=== PATIENT | female | born 1945 | race Caucasian/White ===

== ENCOUNTER 2018-11-26 10:28 | Emergency (ER) | payer MEDICARE, SELFPAY ==
[2018-11-26 10:29] VITALS: BP 160/98; PULSE 85; RESP 20; TEMP 36.3; O2SAT 98; BMI 33.3
--- NOTE | 2018-11-26 10:45 | EKG12_ITS ---
Test Reason : SOB Blood Pressure : / mmHG Vent. Rate : 080 BPM Atrial Rate : 080 BPM P-R Int : 140 ms QRS Dur : 070 ms QT Int : 388 ms P-R-T Axes : 037 -10 023 degrees QTc Int : 447 ms Normal sinus rhythm Minimal voltage criteria for LVH, may be normal variant Inferior infarct , age undetermined Anterior infarct , age undetermined Abnormal ECG Confirmed by REFUGIO MENSAH ([id number]), editor newspaper ANGEL LUIS LAZAR ([id number]) on 11/30/2018 10:59:44 AM Referred By: NYASIA Confirmed By:REFUGIO MENSAH
--- NOTE | 2018-11-26 10:46 | ED.VISSUMM ---
- ER Visit Summary Date of Service: 11/26/18 Chief Complaint: [] Shortness of breath for years getting worse History of Present Illness: The patient is a 73 F [] Cates she has underlying history of hypertension that stable about 2 years ago she developed shortness of breath syndrome etiology which is unclear she indicates she saw aoc operations intelligence officer at [facility] she was found to have a heart murmur, she had a stress test and echo possibly a CT, she was told that the exact etiology of her shortness of breath was unclear but was not anything related to her heart. She indicates she has had persistent shortness of breath when she exerts herself or walks anyway she has to stop to catch her breath, she and intermittently has chest discomfort with the shortness of breath and exertion. She has no history of [place] PE or DVT her hypertension is generally stable she has had normal bowel bladder habits review of systems otherwise negative negative The main issue is his persistent chronic shortness of breath that seems to be getting worse The patient is currently resting in the bed she has no complaints she basically reports when she is still though she does not really exert herself she has no symptoms and her symptoms are primarily exertional Physical Examination: [] Vital signs within normal range General, no distress resting comfortably HEENT is generally unremarkable The neck is supple no adenopathy Cardiovascular, regular rate and rhythm she has a 3 out of 6 systolic murmur Lungs, clear bilateral Abdomen, soft nontender Extremities, no clubbing cyanosis or edema Neurologic, awake alert answering questions appropriately moving all 4 extremities Test Results: [] Emergency Department Course and Treatment: [] And all the above and her age screening labs were obtained Treatment Plan: [] I spoke with the patient's physician Dr. Barker she indicates her recent ejection fraction cardiac echo was about 75%, her valve area was 1.5 she had mild aortic stenosis Patient's EKG screening labs chest x-ray are all generally unremarkable see those reports, on reevaluation she is resting comfortably in the bed she remains asymptomatic I had a long conversation with her and her family explained to them we could admit her for further management evaluation of all the above the differential would certainly include the aortic stenosis contributing to her symptoms we discussed the potential life-threatening etiology and nature of cardiovascular disease including aortic stenosis and again we did discuss admission however the patient and the family did not wish to be admitted they preferred outpatient management the symptoms have been ongoing they understand the above, they will prefer to follow with her primary care physician who will see them and refer them to the appropriate specialist for further ongoing care the patient does agree to return for change in symptoms Disposition: [] Home stable declined admission Impression: [] Progressive dyspnea, aortic stenosis This note was generated with [employer] dictation software. It may contain incorrect words, spelling, and punctuation that were not noted in review of the chart prior to signing ED Disposition - Plan for ED Patient: Referrals: Dang Barker MD [Primary Care Provider] -
--- NOTE | 2018-11-26 10:47 | RAD_ITS ---
STUDY: X-RAY CHEST REASON FOR EXAM: Female, 73 years old. Chest pain TECHNIQUE: Single AP portable view of the chest. COMPARISON: None. FINDINGS: The lungs are clear and expanded. There is no demonstrated pleural abnormality. Normal size heart. Normal mediastinum and lon. Normal visualized pulmonary arteries. Normal visualized aortic arch and descending thoracic aorta. Normal visualized thoracic spine. Normal visualized ribs, clavicles, and shoulders. There is no demonstrated abnormality of the visualized soft tissue structures of the upper abdomen. RAD/Chest 1 View (Portable) IMPRESSION: Normal x-ray examination of the chest. Electronically Signed: Abebe Burk DO at 11:29 EDT Tel , Service support ,
[2018-11-26 10:56] VITALS: O2SAT 96
[2018-11-26 11:02] VITALS: BP 157/55; PULSE 78; RESP 18; O2SAT 95; O2SAT 96
[2018-11-26 11:07] LABS: Absolute Lymphocyte Count 1.54 X10^3/ul (0.83-4.51); Basophil# 0.04 X10^3/uL; Basophil% 0.6 % (0-1); Eosinophil# 0.15 X10^3/uL; Eosinophils% 2.3 % (0-5); Hematocrit 47.1 % (37-47); Hemoglobin 15.5 g/dl (12.0-15.0); Lymphocyte # 1.54 X10^3/ul (4.0); Lymphocyte % 23.6 % (19-41); Mean Corp Hgb Conc 32.9 g/gl (32-36); Mean Corpuscular Hgb 30.6 pg (27.0-32.0); Mean Corpuscular Volume 92.9 fL (81-99); Mean Platelet Vol. 10.6 fl (6.2-12.0); Monocyte# 0.79 X10^3/uL; Monocyte% 12.1 % (0-10); Neutrophil % 61.2 % (47-70); Platelet Count 275 K/mm3 (150-450); RBC Distribution Width CV 13.3 % (11.6-14.6); RBC Distribution Width SD 45.4 fl (35.1-43.9); Red Blood Count 5.07 M/mm3 (4.2-5.4); White Blood Count 6.5 K/mm3 (4.4-11.0)
[2018-11-26 11:14] LABS: POSITIVE COUNT NO; POSITIVE DIFFERENTIAL NO; POSITIVE MORPHOLOGY NO
[2018-11-26 11:23] LABS: BUN 17 mg/dL (7-18); Creatinine, Serum 0.88 mg/dL (0.55-1.02); Estimated Creatinine Clearance 50.47 ml/min; Glucose 115 mg/dL (74-106)
[2018-11-26 11:24] LABS: Anion Gap 4 (5-15); BUN/Creat Ratio 19.2 RATIO (10-20); Calcium,Total 8.7 mg/dL (8.5-10.1); Chloride 106 mmol/L (98-107); EST Glomerular Filtration Rate 66 mL/min (>60); Est Glom Filt Rate - Afr Amer 80 mL/min (>60); Potassium 3.8 mmol/L (3.5-5.1); Sodium Level 138 mmol/L (136-145)
[2018-11-26 11:31] VITALS: BP 157/55; PULSE 78; RESP 18; TEMP 36.3; O2SAT 95
[2018-11-26 12:03] LABS: BNP,B-Type NATRIURETIC PEPTIDE 30.2 pg/mL (0-100)
[2018-11-26 13:05] VITALS: BP 174/54; PULSE 68; RESP 18
--- NOTE | 2018-11-26 13:15 | ED.DEP ---
ED Disposition - Plan for ED Patient: Instructions: Discharge Instructions for Aortic Valve Stenosis, Heart Valve Problems: Aortic Stenosis Referrals: Dang Barker MD [Primary Care Provider] - Additional Instructions: Follow-up with all of your outpatient providers tomorrow call for appointment return for change in symptoms do not exert yourself
[2018-11-26 13:18] VITALS: BP 159/49; PULSE 68; RESP 18; TEMP 34.4
== END 2018-11-26 13:23 | disposition home or self-care (01) ==
LOC: ED 11:40
PROVIDERS: Emergency Provider Emergency Medicine; Family Provider Internal Medicine; PCP Internal Medicine
DX: R06.00 Dyspnea, unspecified (principal); I35.0 Nonrheumatic aortic (valve) stenosis; I10 Essential (primary) hypertension
CPT/HCPCS: 71045; 80048; 83880; 84484; 85025; 93005; 99284

== ENCOUNTER → 2019-03-13 07:45 | Outpatient (CLI) | payer MEDICARE, SELFPAY ==
[2019-02-19 14:47] VITALS: BMI 33.9
--- NOTE | 2019-03-13 08:45 | ECHOD_ITS ---
Reason For Study: DAS Procedure This was a 2D Doppler, Color Flow transthoracic echocardiogram. The study was technically difficult. Exam performed in department. Left Ventricle Normal LV size. Concentric left ventricular hypertrophy. The estimated ejection fraction is 70 %. Stage 2 diastolic dysfunction. No regional wall motion abnormalities noted. Right Ventricle Normal right ventricle. Normal systolic function. Atria The left atrium is mildly enlarged. Normal right atrium. No doppler evidence for ASD. Mitral Valve Mild mitral valve prolapse, posterior leaflet. There is no mitral valve stenosis. Trivial mitral valve insufficiency. Tricuspid Valve There is no tricuspid stenosis. Mild tricuspid valve insufficiency. Pulmonary artery systolic pressure is 40 mmHg. Aortic Valve Bicuspid aortic valve cannot be excluded. Mild aortic stenosis. No aortic valve insufficiency. Pulmonic Valve There is no pulmonic valvular stenosis. No pulmonic valve insufficiency. Great Vessels Normal aortic root. Pericardium/Pleural No pericardial effusion. MMode/2D Measurements & Calculations LVIDd: 4.0 cm IVSd: 1.1 cm LVOT diam: 2.0 cm LVIDs: 2.0 cm LVPWd: 1.0 cm LVOT area: 3.0 cm2 RVDd: 2.7 cm FS: 49.5 % LAV(MOD-bp): 44.3 ml Aortic Valve Planimetry: 1.7 cm2 LA A4 area: 14.8 cm2 LAV(MOD-bp) Indexed: 21.4 ml/m2 LAV(MOD-sp2): 45.9 ml LAV(MOD-sp4): 39.6 ml Time Measurements MV dec time: 0.23 sec Doppler Measurements & Calculations MV E max tom: 88.4 cm/sec Lat Peak E' Tom: 8.0 cm/sec Med Peak E' Tom: 4.2 cm/sec MV A max tom: 116.0 cm/sec E/E' lat: 11.0 E/E' med: 21.0 MV E/A: 0.76 Ao V2 max: 232.0 cm/sec LV V1 max: 128.7 cm/sec SV(LVOT): 89.3 ml Ao max P.5 mmHg LV V1 max P.6 mmHg Ao V2 mean: 183.5 cm/sec LV V1 mean P.6 mmHg Ao mean P.3 mmHg LV V1 mean: 104.1 cm/sec Ao V2 VTI: 52.1 cm LV V1 VTI: 29.6 cm DARI(I,D): 1.7 cm2 DARI(V,D): 1.7 cm2 PA V2 max: 120.9 cm/sec TR max tom: 282.6 cm/sec TR max P.0 mmHg Interpretation Summary The estimated ejection fraction is 70 %. Pulmonary artery systolic pressure is 40 mmHg. Mild tricuspid valve insufficiency. Concentric left ventricular hypertrophy. Stage 2 diastolic dysfunction. The left atrium is mildly enlarged. Mild mitral valve prolapse, posterior leaflet Trivial mitral valve insufficiency. Bicuspid aortic valve cannot be excluded Mild aortic stenosis. Ordering Physician: Chinedu Cooper Referring Physician: Dang Barker Performed By: Brigid Martin, DEISY, RVT
--- NOTE | 2019-03-13 10:48 | PFTCOMP_ITS ---
COMPLETE PULMONARY FUNCTION TEST INTERPRETATION Brief HPI: Patient is a 73 year old female, currently under the care of Dr. Cooper, who presents to [facility] for complete pulmonary function tests secondary to diagnosis of dyspnea. Respiratory therapist reports good effort and reproducible results. Interpretation: Forced expiration spirometry shows no large airways obstructive ventilatory defect with an FEV1 of 89% predicted. There is no significant bronchodilator response by strict ATS criteria. Spirograms are of good quality and plateau normally. The respiratory flow volume loop shows a normal pattern. Lung volumes by body plethysmography show a normal total lung capacity at 4.25 L, 85% predicted. All other lung volumes are within normal limits. Diffusion capacity by carbon monoxide is normal at 77% predicted. The airway resistance is normal. No previous pulmonary function tests were available for review. Impression: These pulmonary function tests are within normal limits.
== END ==
PROVIDERS: Family Provider Internal Medicine; PCP Internal Medicine; Referring Provider Specialist; Visit Provider Specialist
DX: R06.09 Other forms of dyspnea (principal)
CPT/HCPCS: 93306; 94060; 94726; 94729

== ENCOUNTER → 2021-02-11 12:39 | Outpatient (CLI) | payer MEDICARE, SELFPAY ==
[2021-01-28 15:00] VITALS: BMI 34.4
--- NOTE | 2021-02-11 12:41 | ECHOD_ITS ---
Reason For Study: MUMUR Procedure This was a 2D Doppler, Color Flow transthoracic echocardiogram. The study was technically difficult. Limited views were obtained. Exam performed in department. Left Ventricle Normal LV size. Moderate concentric left ventricular hypertrophy. Left ventricular systolic function is normal. The estimated ejection fraction is 70 %. Diastolic function is indeterminate. No regional wall motion abnormalities noted. Right Ventricle Normal RV size. Normal systolic function. Atria The left atrium is mildly enlarged. Normal right atrium. No doppler evidence for ASD. Mitral Valve There is no mitral annular calcification. Moderate diffuse mitral valve thickening. Mild mitral valve prolapse, posterior leaflet. Mild (1+) mitral valve insufficiency. Tricuspid Valve Normal tricuspid valve. Mild tricuspid valve insufficiency. Right ventricular systolic pressure estimated to be 34 mmHg. Aortic Valve Trisinus/trileaflet aortic valve. Mild diffuse aortic valve thickening. Mild diffuse aortic valve calcification. Mild aortic stenosis. Pulmonic Valve Normal pulmonic valve. Trivial pulmonic valve insufficiency. Great Vessels Normal sized aortic root. Calcified aortic root. Pericardium/Pleural No pericardial effusion. Medication 22 gauge I.V. with prn adaptor inserted into right arm. Diluted definity 2ml given slow IV push to enhance endocardial definition. MMode/2D Measurements & Calculations LVIDd: 3.5 cm IVSd: 1.3 cm LVOT diam: 2.0 cm LVIDs: 2.0 cm LVPWd: 1.3 cm RVDd: 3.6 cm FS: 42.0 % LVOT area: 3.1 cm2 Ao root diam: 2.9 cm LAV(MOD-bp): 46.2 ml LA A4 area: 17.3 cm2 LAV(MOD-bp) Indexed: 23.3 ml/m2 LAV(MOD-sp2): 42.2 ml LAV(MOD-sp4): 46.2 ml LA dimension(2D): 4.2 cm RA A4 area: 11.1 cm2 Time Measurements MV dec time: 0.31 sec Doppler Measurements & Calculations MV E max tom: 110.6 cm/sec Lat Peak E' Tom: 3.9 cm/sec Med Peak E' Tom: 3.5 cm/sec MV A max tom: 126.3 cm/sec E/E' lat: 28.1 E/E' med: 31.2 MV E/A: 0.88 MV V2 max: 132.9 cm/sec Ao V2 max: 193.7 cm/sec LV V1 max: 88.8 cm/sec MV max P.1 mmHg Ao max P.0 mmHg LV V1 max P.9 mmHg MV V2 mean: 74.4 cm/sec Ao V2 mean: 146.4 cm/sec LV V1 mean P.3 mmHg MV mean P.5 mmHg Ao mean P.2 mmHg LV V1 mean: 65.5 cm/sec MV V2 VTI: 35.7 cm Ao V2 VTI: 48.2 cm LV V1 VTI: 22.0 cm MVA(VTI): 1.9 cm2 DARI(I,D): 1.4 cm2 DARI(V,D): 1.4 cm2 SV(LVOT): 67.6 ml PA V2 max: 95.0 cm/sec TR max tom: 277.1 cm/sec TR max P.7 mmHg ECHO/Echo Complete W/ Contrast Interpretation Summary The study was technically difficult. Limited views were obtained. Left ventricular systolic function is normal. The estimated ejection fraction is 70 %. Moderate concentric left ventricular hypertrophy. The left atrium is mildly enlarged. Mild mitral valve prolapse, posterior leaflet Moderate diffuse mitral valve thickening. Mild (1+) mitral valve insufficiency. Mild tricuspid valve insufficiency. Mild aortic stenosis. Trivial pulmonic valve insufficiency. Calcified aortic root. Right ventricular systolic pressure estimated to be 34 mmHg. Diastolic function is indeterminate. Ordering Physician: Moses Quiñonez Referring Physician: ORQUIDEA RAPHAEL Performed By: Casie Rome, RDCS, RVT
== END ==
PROVIDERS: PCP Internal Medicine; Referring Provider Internal Medicine Cardiovascular Disease; Visit Provider Internal Medicine Cardiovascular Disease
DX: I35.0 Nonrheumatic aortic (valve) stenosis (principal)
CPT/HCPCS: 93306; Q9957; A4216; C8929; J3490

== ENCOUNTER 2022-10-07 15:29 | Observation (INO) | payer MEDICARE, SELFPAY ==
[2022-10-07 15:30] VITALS: BP 148/70; PULSE 65; RESP 16; TEMP 36.6; O2SAT 96
--- NOTE | 2022-10-07 16:38 | CT_ITS ---
EXAM: CT ABDOMEN AND PELVIS WITH INTRAVENOUS CONTRAST CLINICAL INDICATION: rectal pain, constipation TECHNIQUE: Helically acquired images were obtained of the abdomen and pelvis with intravenous contrast. This CT exam was performed using one or more of the following dose reduction techniques: automated exposure control, adjustment of the mA and/or kV according to patient size, and/or use of iterative reconstruction technique. This report was created using [employer] report generation technology. CONTRAST: 100 cc of Isovue-370 IV. RADIATION DOSE: CTDIvol = 30.12 mGy, DLP = 1328.44 mGy-cm. COMPARISON: None. FINDINGS: LOWER THORAX: Coronary artery calcifications. Lung bases are clear. No cardiomegaly. No significant pericardial effusion. ABDOMEN: LIVER: Unremarkable. Homogeneous. No focal mass. GALLBLADDER AND BILE DUCTS: Unremarkable. No calcified gallstones. No gallbladder distention or wall edema. No intra- or extrahepatic biliary ductal dilation. PANCREAS: Unremarkable. No focal cystic or solid mass. SPLEEN: Unremarkable. Normal size without focal cystic or solid mass. ADRENALS: Unremarkable. No nodules. KIDNEYS AND URETERS: Cyst measuring 5.8 cm left kidney small cyst right kidney. Normal renal size and position. No hydronephrosis. STOMACH AND BOWEL: Rectum is mildly distended up to 5.5 cm in diameter with fecal material. Moderate perirectal fat stranding. No focal inflammatory change. PELVIS: APPENDIX: Normal appendix. BLADDER: Unremarkable. REPRODUCTIVE: Hysterectomy. Cyst measuring 3.3 cm left adnexa. ABDOMEN and PELVIS: INTRAPERITONEAL SPACE: Unremarkable. No ascites or other fluid collection. No free air. BONES/JOINTS: Unremarkable. No suspicious lytic or blastic abnormality. SOFT TISSUES: See above. VASCULATURE: See above. LYMPH NODES: Unremarkable. No enlarged lymph nodes. CT/Abdomen/Pelvis W IV Cont ONLY IMPRESSION: 1. Moderate perirectal fat stranding consistent with proctitis. Rectum is mildly distended up to 5.5 cm in diameter with fecal material. 2. Coronary artery disease. 3. Hysterectomy. 4. Cyst measuring 3.3 cm left adnexa. 5. Cyst measuring 5.8 cm left kidney small cyst right kidney. No follow-up imaging necessary. RECOMMENDATIONS: Cyst measuring 3.3 cm left adnexa. No follow-up is necessary. Electronically Signed: Tim Tobias MD at 19:06 EDT ,
--- NOTE | 2022-10-07 16:39 | EX.ED.DYSGE1 ---
HPI History of Present Illness Chief Complaint: Constipation Informant: patient Onset/Context/Timing Onset: Today Narrative Narrative: Patient presents secondary to rectal pain and constipation. She states has had problems moving her bowels in the past. Today she is been passing some soft stool but unable to get her self cleared out. She states has a lot of rectal pain and when she has to go the bathroom she will start screaming because of pain. Family feels that she is becoming very weak. Patient has not noted significant blood. She states she has had a colonoscopy fairly recently that was unremarkable. [facility] Medical History Anxiety DDD (degenerative disc disease), lumbar DJD (degenerative joint disease) of knee Dyspnea on exertion Essential hypertension Hyperlipidemia Hypothyroidism Lichen sclerosus of female genitalia LVH (left ventricular hypertrophy) MVP (mitral valve prolapse) Nonrheumatic aortic (valve) stenosis Vaginal enterocele Vitamin D deficiency Home Medications hydrochlorothiazide 25 mg tablet 25 mg PO DAILY 11/26/18 [History Last Taken Unknown] acetaminophen 500 mg tablet (Acetaminophen Extra Strength) 500 mg PO Q6H PRN 02/19/19 [History Last Taken Unknown] aspirin 81 mg tablet,delayed release (Adult Aspirin Regimen) 81 mg PO DAILY 02/19/19 [History Last Taken Unknown] cholecalciferol (vitamin D3) 50 mcg (2,000 unit) tablet 2,000 unit PO DAILY 02/19/19 [History Last Taken Unknown] citalopram 20 mg tablet 20 mg PO DAILY 02/19/19 [History Last Taken Unknown] hydrocortisone 2.5 % topical cream 1 applic topical ONCE PRN 02/19/19 [History Last Taken Unknown] albuterol sulfate 90 mcg/actuation aerosol inhaler (ProAir HFA) 2 puff inhalation Q6H PRN 01/28/21 [History Last Taken Unknown] levothyroxine 25 mcg tablet 25 mcg PO DAILY 01/28/21 [History Last Taken Unknown] rosuvastatin 5 mg tablet 5 mg PO DAILY 01/28/21 [History Last Taken Unknown] carvedilol 6.25 mg tablet 6.25 mg PO BID #180 tabs 05/11/22 [Rx Last Taken Unknown] ciprofloxacin HCl 500 mg tablet (Cipro) 500 mg PO BID #14 tabs 10/07/22 [Rx Last Taken Unknown] hydrocortisone acetate 25 mg rectal suppository (Anusol-HC) 25 mg IL BID #12 ea 10/07/22 [Rx Last Taken Unknown] metronidazole 500 mg tablet 500 mg PO BID 7 days #14 tabs 10/07/22 [Rx Last Taken Unknown] prednisone 20 mg tablet 40 mg PO DAILY #6 tabs 10/07/22 [Rx Last Taken Unknown] Allergy/AdvReac Type Severity Reaction Status Date / Time No Known Allergies Allergy Verified 10/07/22 15:30 Family History Mother Hypertension Myocardial infarction Surgical History History of appendectomy History of hysterectomy History of tonsillectomy Social History Smoking Status: Never smoker alcohol intake: never substance use type: does not use caffeine: Yes Type: coffee Number of servings: 1 ROS ROS ED Constitutional Constitutional ED: Denies chills or fever(s) Eyes Eyes: Denies change in vision or discharge from eye(s) ENT ENT ED: Denies discharge from eye(s), rhinorrhea or sore throat Cardiovascular Cardiovascular: Denies chest pain Respiratory/Chest Respiratory/Chest: Denies cough or dyspnea Gastrointestinal Gastrointestinal: Reports abdominal pain, constipation and other Details: Rectal pain ; Denies diarrhea, nausea or vomiting Genitourinary Genitourinary ED: Denies dysuria Musculoskeletal Musculoskeletal: Denies back pain or extremity pain Integumentary Denies Abrasions or rash Neurologic Neurologic: Denies headache(s) or weakness Allergic/Immunologic Allergic/Immunologic ED: Denies lip swelling or urticaria EXAM Physical Exam Const Vital Signs: 10/07/22 15:30 10/07/22 20:12 Temperature 98 F Temperature Source Temporal Pulse Rate 65 Respiratory Rate 16 Blood Pressure 148/70 H Blood Pressure Mean 96 Pulse Ox 96 98 Oxygen Delivery Method Room Air Room Air Positive well nourished and well developed General Appearance ED: well developed HEENT Reports normocephalic and head/scalp atraumatic Eyes PERRL and EOMs intact bilaterally Neck supple Chest Wall inspection of chest normal and palpation of chest normal Resp normal respiratory effort and clear to auscultation bilaterally Cardio regular rate and regular rhythm GI GI Narrative: Abdomen is soft, nontender. Palpation: soft Extremity normal to inspection Neuro oriented x3 and no sensory deficits noted Sensorium / Orientation: alert Motor Exam: strength 5/5 throughout Psych Mood & Affect: anxious Skin no rashes or lesions noted MDM MDM MDM Narrative Medical decision making narrative: Labwork obtained to evaluate for leukocytosis, anemia, and electrolyte derangement. CT scan of the abdomen and pelvis obtained given concern for bowel infection causing her symptoms. Topical lidocaine placed to the rectum to help control pain. Lab Data Attestation: I reviewed the patient's lab results. Labs: Laboratory Results - last 24 hr 10/07/22 10/07/22 17:13 17:13 WBC 16.3 H RBC 4.51 Hgb 14.1 Hct 42.0 MCV 93.1 MCH 31.3 MCHC 33.6 RDW Std Deviation 42.5 RDW Coeff of [place] 12.5 Plt Count 274 MPV 11.2 Immature Gran % (Auto) 0.400 Neut % (Auto) 81.2 H Lymph % (Auto) 8.6 L [place] % (Auto) 9.0 Eos % (Auto) 0.4 Baso % (Auto) 0.4 Absolute Neuts (auto) 13.2 H Absolute Lymphs (auto) 1.39 Nucleated RBC % 0 Sodium 141 Potassium 3.5 Chloride 105 Carbon Dioxide 26.0 Anion Gap 10 BUN 27 H Creatinine 0.86 Estim Creat Clear Calc 48.51 Est GFR (MDRD) Af Amer 82 Est GFR (MDRD) Non-Af 68 BUN/Creatinine Ratio 31.3 H Glucose 145 H Calcium 9.3 Radiography Diagnostic Testing: Clinical Impression(s) from Imaging Studies Abdomen/Pelvis CT 10/07/22 16:38 IMPRESSION: 1. Moderate perirectal fat stranding consistent with proctitis. Rectum is mildly distended up to 5.5 cm in diameter with fecal material. 2. Coronary artery disease. 3. Hysterectomy. 4. Cyst measuring 3.3 cm left adnexa. 5. Cyst measuring 5.8 cm left kidney small cyst right kidney. No follow-up imaging necessary. RECOMMENDATIONS: Cyst measuring 3.3 cm left adnexa. No follow-up is necessary. Electronically Signed: Tim Tobias MD at 19:06 EDT , Treatment and Re-Evaluation :: White count is elevated at 16.3 with 81% neutrophils. Chemistry studies are unremarkable. CT scan of the abdomen pelvis reveals perirectal fat stranding consistent with proctitis. Rectum is mildly distended. Test results are discussed with patient and family at bedside. She was able to get up and passed some stool after the lidocaine had been applied to her rectum. We will redose the lidocaine and give her a fleets enema to try to help evacuate the rectal area. She will be started on Anusol HC suppositories along with a burst of prednisone, Cipro, and Flagyl. She is referred to GI for follow-up. When nursing staff went to discharge the patient patient and family felt that her pain was not controlled well enough to go home. I went back and spoke with the patient and family. I called GI, Dr. Silva for any further recommendations for pain control. He did recommend adding either budesonide foam or hydrocortisone enemas. Patient was given a dose of Toradol and an Anusol HC suppository here. When speaking with family after consulting Dr. Silva, patient and family now states that she is just too weak to go home and cannot walk. She had gotten up to the bedside commode earlier. I asked nursing staff to get her up. They state that they did require significant assistance and do not feel that she will be safe for home. Patient did state that she be willing to go to a alf for rehab if needed. I will speak with the hospitalist. Discharge Plan Triage Chief Complaint: Constipation ED Provider: Harriet Lu Dx/Rx/DC Orders Clinical Impression: Proctitis, Generalized weakness Prescriptions: New hydrocortisone acetate [Anusol-HC] 25 mg suppository 25 mg IL BID Qty: 12 0RF prednisone 20 mg tablet 40 mg PO DAILY Qty: 6 0RF metronidazole 500 mg tablet 500 mg PO BID 7 Days Qty: 14 0RF ciprofloxacin HCl [Cipro] 500 mg tablet 500 mg PO BID Qty: 14 0RF No Action citalopram 20 mg tablet 20 mg PO DAILY hydrocortisone 2.5 % cream 1 applic TOPICAL ONCE PRN cholecalciferol (vitamin D3) 2,000 unit tablet 2,000 unit PO DAILY aspirin [Adult Aspirin Regimen] 81 mg tablet,delayed release (DR/EC) 81 mg PO DAILY acetaminophen [Acetaminophen Extra Strength] 500 mg tablet 500 mg PO Q6H PRN albuterol sulfate [ProAir HFA] 90 mcg/actuation HFA aerosol inhaler 2 puff inhalation Q6H PRN rosuvastatin 5 mg tablet 5 mg PO DAILY levothyroxine 25 mcg tablet 25 mcg PO DAILY hydrochlorothiazide 25 MG tablet 25 mg PO DAILY carvedilol 6.25 mg tablet 6.25 mg PO BID Qty: 180 3RF Rx Instructions: must administer with a meal/food Primary Care Provider: Dang Barker Referrals: Dang Barker MD [Primary Care Provider] - 1 Week Friend,DO Jey [Med Staff - Active Staff] - As Needed Disposition Disposition: Acute Care Hospital [facility]
[2022-10-07 16:50] VITALS: BMI 32.3
[2022-10-07] MEDS: 0.9% Normal Saline 1,000 ML 150 ML IV (17:12)
[2022-10-07 17:29] LABS: Absolute Lymphocyte Count 1.39 X10^3/uL (0.83-4.51); Absolute Neutrophil Count 13.2 X10^3/uL (2.0-7.7); Basophil# 0.07 X10^3/uL; Basophil% 0.4 % (0-1); Eosinophil# 0.07 X10^3/uL; Eosinophils% 0.4 % (0-5); Hemoglobin 14.1 g/dL (12.0-15.0); Lymphocyte # 1.39 X10^3/ul (0.83-4.51); Lymphocyte % 8.6 % (19-41); Mean Corp Hgb Conc 33.6 g/dL (32-36); Mean Corpuscular Hgb 31.3 pg (27.0-32.0); Mean Corpuscular Volume 93.1 fL (81-99); Mean Platelet Vol. 11.2 fl (6.2-12.0); Monocyte# 1.46 X10^3/uL; NRBC Flagged by Analyzer 0 % (0-5); Neutrophil # 13.19 X10^3/uL (2.7-7.7); Neutrophil % 81.2 % (47-70); Platelet Count 274 K/mm3 (150-450); RBC Distribution Width CV 12.5 % (11.6-14.6); RBC Distribution Width SD 42.5 fl (35.1-43.9); Red Blood Count 4.51 M/mm3 (4.2-5.4); White Blood Count 16.3 K/mm3 (4.4-11.0)
[2022-10-07 17:35] LABS: Anion Gap 10 (5-15); BUN 27 mg/dL (7-18); BUN/Creat Ratio 31.3 RATIO (10-20); Calcium,Total 9.3 mg/dL (8.5-10.1); Chloride 105 mmol/L (98-107); Creatinine, Serum 0.86 mg/dL (0.55-1.02); EST Glomerular Filtration Rate 68 mL/min (>60); Est Glom Filt Rate - Afr Amer 82 mL/min (>60); Estimated Creatinine Clearance 48.51 ml/min; Glucose 145 mg/dL (74-106); Potassium 3.5 mmol/L (3.5-5.1); Sodium Level 141 mmol/L (136-145)
[2022-10-07] MEDS: Lidocaine 2% Jelly 1 APPLIC Tube TOPICAL (18:07)
[2022-10-07] MEDS: Lidocaine Jelly 2% 20 ML Syringe (URO-JET) 1 APPLIC TOPICAL (19:36)
[2022-10-07] MEDS: Fleet Enema 1 ML RC (19:38)
[2022-10-07 20:12] VITALS: O2SAT 98
[2022-10-07] MEDS: Ketorolac 15 MG/ML Vial IV (20:20)
[2022-10-07] MEDS: Hydrocortisone 25 MG Suppository RC (20:59)
--- NOTE | 2022-10-07 21:27 | PCM.HP.STD ---
HPI - General General Date of Admission: 10/07/22 Date of Service: 10/07/22 Chief Complaint: Rectal pain HPI Narrative ROMAN RAMIREZ, is a 77 F with a significant history of hypothyroidism on Synthroid; depression/anxiety on citalopram; left ventricular hypertrophy; aortic valve stenosis; depression/anxiety and hypertension who presents to the emergency department with progressively worsening rectal pain that started about 2 to 3 months ago but became excessively CVA on the same day of presentation. She describes her rectal pain with multiple of additives including burning and sharpness. The pain increases when she tries to defecate. Also the pain increases with coughing. The pain improves with lying on her side. Associated with her symptoms is stool incontinence. At the emergency department emergency plan doctor discussed the case with GI and p.o. on antibiotics and also rectal suppository was given. Also patient received antiemetics at the ED. Her bowels moved appropriately at the ED. Further recommendation was for patient to be discharged and to use budesonide foam enema if she can afford as patient continued to have rectal pain at the ED. Patient also reported that she could not walk so a decision was made for patient to stay at the hospital for PT and OT evaluation and for possibly fpc placement. Of note patient reported that she has had weakness for about 2 months but it worsened on the day of presentation. Of note patient routine gets cortisone shots in her legs for pain. [facility] Medical History Anxiety DDD (degenerative disc disease), lumbar DJD (degenerative joint disease) of knee Dyspnea on exertion Essential hypertension Hyperlipidemia Hypothyroidism Lichen sclerosus of female genitalia LVH (left ventricular hypertrophy) MVP (mitral valve prolapse) Nonrheumatic aortic (valve) stenosis Vaginal enterocele Vitamin D deficiency Home Medications hydrochlorothiazide 25 mg tablet 25 mg PO DAILY 11/26/18 [History Last Taken 10/07/22] aspirin 81 mg tablet,delayed release (Adult Aspirin Regimen) 81 mg PO DAILY 02/19/19 [History Last Taken 10/07/22] cholecalciferol (vitamin D3) 50 mcg (2,000 unit) tablet 2,000 unit PO DAILY 02/19/19 [History Last Taken 10/07/22] citalopram 20 mg tablet 20 mg PO DAILY 07/30/19 [History Last Taken 10/07/22] hydrocortisone 2.5 % topical cream 1 applic topical ONCE PRN Constipation 02/19/19 [History Last Taken 10/07/22] levothyroxine 25 mcg tablet 25 mcg PO DAILY 01/28/21 [History Last Taken 10/07/22] rosuvastatin 5 mg tablet 5 mg PO DAILY 01/28/21 [History Last Taken Unknown] carvedilol 6.25 mg tablet 6.25 mg PO BID #180 tabs 05/11/22 [Rx Last Taken 10/07/22] hydrocortisone acetate 25 mg rectal suppository (Anusol-HC) 25 mg NC BID #12 ea 10/07/22 [Rx Last Taken Unknown] metronidazole 500 mg tablet 500 mg PO BID 7 days #14 tabs 10/07/22 [Rx Last Taken Unknown] prednisone 20 mg tablet 40 mg PO DAILY #6 tabs 10/07/22 [Rx Last Taken Unknown] Allergy/AdvReac Type Severity Reaction Status Date / Time No Known Allergies Allergy Verified 10/07/22 15:30 Family History Mother Hypertension Myocardial infarction Surgical History History of appendectomy History of hysterectomy History of tonsillectomy Social History Smoking Status: Never smoker alcohol intake: never substance use type: does not use caffeine: Yes Type: coffee Number of servings: 1 ROS ROS Narrative Pertinent positives and pertinent negatives as noted in HPI. All other systems were reviewed and are negative Vital Signs Vital Signs Vital Signs: 10/07/22 15:30 10/07/22 20:12 Temperature 98 F Temperature Source Temporal Pulse Rate 65 Respiratory Rate 16 Blood Pressure 148/70 H Blood Pressure Mean 96 Pulse Ox 96 98 Oxygen Delivery Method Room Air Room Air Weight Weight: 88.2 kg Body Mass Index (BMI) 32.3 Physical Exam Narrative Physical exam: General: Well-nourished, well-developed. Head: Normocephalic, atraumatic, no tenderness Eyes: Vision is grossly intact. EOMI ENT, no trauma, moist mucous membranes, no rhinorrhea Neck: Nontender, No thyromegaly. CVS: Regular rate and rhythm. S1-S2 present. Respiratory : clear to auscultation bilaterally, chest wall nontender, no wheezing Abdomen: Soft, nontender, nondistended, normal bowel sounds, no masses : Deferred Back: Nontender, no CVA tenderness. Extremities: Nontender full range of motion, no trauma Skin: Normal color, no trauma, erythema coccygeal area Neuro: Alert, oriented, cranial nerves II through XII grossly intact. Psychiatry: Normal mood. Normal affect. Not depressed. Not anxious. Results Lab / Micro Data Result Diagrams: 10/07/22 17:13 10/07/22 17:13 Labs: Laboratory Results - last 24 hr 10/07/22 17:13: WBC 16.3 H, RBC 4.51, Hgb 14.1, Hct 42.0, MCV 93.1, MCH 31.3, MCHC 33.6, RDW Std Deviation 42.5, RDW Coeff of [place] 12.5, Plt Count 274, MPV 11.2, Immature Gran % (Auto) 0.400, Neut % (Auto) 81.2 H, Lymph % (Auto) 8.6 L, [place] % (Auto) 9.0, Eos % (Auto) 0.4, Baso % (Auto) 0.4, Absolute Neuts (auto) 13.2 H, Absolute Lymphs (auto) 1.39, Nucleated RBC % 0 10/07/22 17:13: Sodium 141, Potassium 3.5, Chloride 105, Carbon Dioxide 26.0, Anion Gap 10, BUN 27 H, Creatinine 0.86, Estim Creat Clear Calc 48.51, Est GFR (MDRD) Af Amer 82, Est GFR (MDRD) Non-Af 68, BUN/Creatinine Ratio 31.3 H, Glucose 145 H, Calcium 9.3 Radiology Impression Abdomen/Pelvis CT 10/07/22 16:38 IMPRESSION: 1. Moderate perirectal fat stranding consistent with proctitis. Rectum is mildly distended up to 5.5 cm in diameter with fecal material. 2. Coronary artery disease. 3. Hysterectomy. 4. Cyst measuring 3.3 cm left adnexa. 5. Cyst measuring 5.8 cm left kidney small cyst right kidney. No follow-up imaging necessary. RECOMMENDATIONS: Cyst measuring 3.3 cm left adnexa. No follow-up is necessary. Electronically Signed: Tim Tobias MD at 19:06 EDT , Assessment & Plan Assessment/Plan (1) Proctitis: (2) Generalized weakness: PLAN: Plan Acute Proctitis Review of CBC showed a white count of 16,300; with neutrophilia and lymphopenia. Trend CBC Abdomen and pelvis CT interpreted by radiologist as proctitis; and cyst measuring 3.3 cm in the left adnexa for which no follow-up is necessary. Abdomen/pelvis CT was visualized and independently interpreted I agree with radiologist interpretation. Ciprofloxacin p.o. and Flagyl p.o. was initially ordered at the emergency department with plan to discharge patient home. I will continue same antibiotics while patient has been hospitalized. Anusol ordered. As needed Tylenol and Toradol ordered. Generalized weakness/inability to ambulate PT and OT to work with patient for strengthening balance training and make recommendations. Case management consult. Elevated BUN Creatinine unremarkable and at baseline Likely secondary to dehydration Gentle IV hydration ordered. Trend CBC Stage I pressure ulcers to coccyx Calmoseptine ordered. Hypertension Blood pressure is not within goal Home blood pressure medication continued. Trend blood pressure and adjust blood pressure medications. CKD stage II Stable Trend BMP DVT prophylaxis: Subcutaneous Lovenox ordered Charges/Coding Visit Charges Inpatient E&M: 09157 Init Hosp L3
[2022-10-07 21:31] VITALS: BP 149/50; PULSE 74; RESP 15; TEMP 36.6; O2SAT 99
[2022-10-07] MEDS: metroNIDAZOLE 500 MG Tablet PO (21:39)
[2022-10-07] MEDS: Ciprofloxacin 500 MG Tablet PO (21:39)
[2022-10-07] MEDS: predniSONE 20 MG Tablet 40 MG PO (21:39)
[2022-10-07 23:01] VITALS: BMI 44.3
[2022-10-07 23:10] VITALS: BP 123/50; PULSE 63; RESP 17; TEMP 36.3; O2SAT 97
[2022-10-08] MEDS: MELATONIN 3 MG TABLET PO ×2 (00:17→20:18)
[2022-10-08] MEDS: 0.9% Normal Saline 1,000 ML 75 ML IV ×2 (00:17→11:24)
[2022-10-08] MEDS: Carvedilol 6.25 MG Tablet PO ×3 (00:17→16:11)
[2022-10-08 05:11] VITALS: BP 111/56; PULSE 65; RESP 16; TEMP 36.8; O2SAT 98
[2022-10-08] MEDS: metroNIDAZOLE 500 MG Tablet PO ×3 (06:05→20:16)
[2022-10-08] MEDS: Levothyroxine 25 MCG TABLET PO (06:05)
[2022-10-08] MEDS: Hydrocortisone 25 MG Suppository RC ×3 (06:05→17:39)
--- NOTE | 2022-10-08 07:02 | PCM.PROGNOTE ---
Subjective Subjective Mrs. Hutchins is a 77-year-old female who presented to the emergency department on 10/07/2022 with rectal pain and constipation. She evidently has had issues moving her bowels in the past and has been passing some soft stool but unable to get herself cleared out. Patient family reported that she is having rectal pain and when she has to go to the bathroom she will start screaming because the pain is so severe. Family is also concerned because she seems to becoming very weak. There is been no significant blood with her stools and she had a recent colonoscopy that was unremarkable. Pain is burning and sharp in quality and increases with defecation and coughing. It reportedly improved with lying on her side. On presentation she had a leukocytosis with a white count of 16.3 and a left shift at 81.2% but her labs were overall otherwise unremarkable. A CT of the abdomen pelvis was performed which demonstrated moderate perirectal fat stranding consistent with proctitis and rectal distention up to 5.5 cm with fecal material, coronary artery disease, previous hysterectomy, 3.3 cm adnexal cyst, and a simple cyst of the left kidney that was 5.8 cm with no follow-up recommendations made. In the emergency department she was able to pass some stool with the help of lidocaine topical perirectally and a fleets enema. She was going to be started on Anusol suppositories with a burst of prednisone as well as Cipro and Flagyl and GI follow-up however upon reevaluation family was concerned that her pain was not well enough controlled and she was having so much difficulty ambulating with worsening weakness that they did not feel she could go home. GI was called for any further recommendations for pain and Dr. Silva recommended adding budesonide foam or hydrocortisone enemas. Given her debility she was admitted to the hospital for therapy evaluation as well and possible placement if needed. Patient reports that she is feeling better today than she did yesterday. States she has some chronic seepage of stool out of her rectum and feels like she may need cleaned up at this point. Denies any other further needs at this time. I did discuss the possibility of her needing ongoing rehab at discharge and she was understanding of this and excepting. We are awaiting physical therapy evaluation to see how she does to find out what her discharge needs will be. Objective Data Objective Data Vital Signs: Vital Signs Temp Pulse Resp BP Pulse Ox O2 Del Method 98.3 F 65 16 111/56 L 98 Room Air 10/08/22 05:11 10/08/22 05:11 10/08/22 05:11 10/08/22 05:11 10/08/22 05:11 10/08/22 05:11 Oxygen Delivery Method Room Air Weight: 117.2 kg Body Mass Index (BMI) 44.3 Intake & Output: Intake and Output for Last 24 Hours 10/06/22 10/07/22 10/08/22 23:59 23:59 23:59 Intake Total 1300 / 1300 Balance 1300 / 1300 Lab / Micro Data Result Diagrams: 10/08/22 07:14 10/08/22 07:14 Labs: Laboratory Results - last 24 hr 10/07/22 17:13: WBC 16.3 H, RBC 4.51, Hgb 14.1, Hct 42.0, MCV 93.1, MCH 31.3, MCHC 33.6, RDW Std Deviation 42.5, RDW Coeff of [place] 12.5, Plt Count 274, MPV 11.2, Immature Gran % (Auto) 0.400, Neut % (Auto) 81.2 H, Lymph % (Auto) 8.6 L, [place] % (Auto) 9.0, Eos % (Auto) 0.4, Baso % (Auto) 0.4, Absolute Neuts (auto) 13.2 H, Absolute Lymphs (auto) 1.39, Nucleated RBC % 0 10/07/22 17:13: Sodium 141, Potassium 3.5, Chloride 105, Carbon Dioxide 26.0, Anion Gap 10, BUN 27 H, Creatinine 0.86, Estim Creat Clear Calc 48.51, Est GFR (MDRD) Af Amer 82, Est GFR (MDRD) Non-Af 68, BUN/Creatinine Ratio 31.3 H, Glucose 145 H, Calcium 9.3 Radiography Diagnostic Testing: Radiology Impression Abdomen/Pelvis CT 10/07/22 16:38 IMPRESSION: 1. Moderate perirectal fat stranding consistent with proctitis. Rectum is mildly distended up to 5.5 cm in diameter with fecal material. 2. Coronary artery disease. 3. Hysterectomy. 4. Cyst measuring 3.3 cm left adnexa. 5. Cyst measuring 5.8 cm left kidney small cyst right kidney. No follow-up imaging necessary. RECOMMENDATIONS: Cyst measuring 3.3 cm left adnexa. No follow-up is necessary. Electronically Signed: Tim Tobias MD at 19:06 EDT , Physical Exam Const alert, oriented x3, no apparent distress and well nourished Constitutional Narrative: Morbidly obese, elderly white female lying in bed, appears comfortable and nontoxic, awake upon my arrival, appears older than stated age HEENT normocephalic, head/scalp atraumatic and moist oral mucous membranes HEENT Narrative: Mallampati 3, no thrush Resp normal respiratory effort, normal air movement and clear to auscultation bilaterally Effort and Inspection: Negative for tachypneic, respiratory distress or uses accessory muscles Auscultation: Negative for rales, rhonchi or wheezes Cardio regular rate, regular rhythm, S1 normal heart sound, S2 normal heart sound, no murmurs, no rub and no gallops GI normal to inspection, nondistended, normoactive bowel sounds and soft to palpation GI Narrative: Mild tenderness with palpation of the abdomen that is predominantly noted in the perineum/rectal area Extremity normal capillary refill and no clubbing, cyanosis or edema Neuro no focal motor deficits and no sensory deficits noted Speech: speech normal Motor Exam: general weakness Psych thought process normal, cooperative and affect normal Psych Narrative: Very pleasant, appropriately track of Appearance: appropriate Assessment & Plan Assessment/Plan (1) Proctitis: (2) Constipation: (3) Generalized weakness: (4) Debility: (5) Leukocytosis: (6) Hypokalemia: PLAN: Plan Proctitis/constipation -Continue Cipro and Flagyl for now with probable transition to doxycycline at discharge for a total of 21 days -Continue Anusol 3 times daily -Add hydrocortisone enema at at bedtime -Add scheduled Dulcolax for stool softener -Avoid narcotics as this will make constipation worse -Encourage hydration -Check TSH -Schedule Tylenol 1000 mg every 8 hours and discontinue NSAIDs Debility/generalized weakness -PT/OT consultation -Case management/social work consultation for possible placement at discharge depending on progress with PT and OT Hypokalemia -40 mill colons p.o. potassium replacement -Repeat lab in a.m. -Check a.m. magnesium level Leukocytosis -Suspect related to the above -See above for treatment -Repeat CBC in a.m. -Current CBC for today is pending Hypothyroidism -Continue home levothyroxine -Check TSH as hypothyroidism could make constipation worse HTN/HPL -Continue carvedilol 6.25 mg p.o. twice daily -Continue hydrochlorothiazide 25 mg daily Hyperlipidemia -Continue rosuvastatin 5 mg daily Mitral valve prolapse/nonrheumatic aortic valve stenosis -No current issues -Continued outpatient follow-up Anxiety/depression -Continue home citalopram Morbid obesity -BMI is 44.4 -Recommend weight loss -Complicates treatment, prognosis, outcomes DVT prophylaxis Continue enoxaparin but increase to 40 twice daily with BMI at 44.4 CODE STATUS -Full code Charges/Coding Visit Charges Inpatient E&M: 73900 Subs Hosp L2
[2022-10-08 07:44] LABS: Absolute Lymphocyte Count 0.97 X10^3/uL (0.83-4.51); Absolute Neutrophil Count 13.8 X10^3/uL (2.0-7.7); Basophil# 0.03 X10^3/uL; Basophil% 0.2 % (0-1); Hematocrit 39.8 % (37-47); Hemoglobin 12.9 g/dL (12.0-15.0); Lymphocyte # 0.97 X10^3/ul (0.83-4.51); Lymphocyte % 6.2 % (19-41); Mean Corp Hgb Conc 32.4 g/dL (32-36); Mean Corpuscular Hgb 30.7 pg (27.0-32.0); Mean Corpuscular Volume 94.8 fL (81-99); Mean Platelet Vol. 11.2 fl (6.2-12.0); Monocyte# 0.93 X10^3/uL; Monocyte% 5.9 % (0-10); NRBC Flagged by Analyzer 0 % (0-5); Neutrophil # 13.76 X10^3/uL (2.7-7.7); Neutrophil % 87.2 % (47-70); Platelet Count 212 K/mm3 (150-450); RBC Distribution Width CV 12.6 % (11.6-14.6); RBC Distribution Width SD 43.5 fl (35.1-43.9); White Blood Count 15.8 K/mm3 (4.4-11.0)
[2022-10-08 07:57] LABS: Anion Gap 8 (5-15); BUN 22 mg/dL (7-18); BUN/Creat Ratio 35.8 RATIO (10-20); Calcium,Total 8.1 mg/dL (8.5-10.1); Chloride 107 mmol/L (98-107); Creatinine, Serum 0.62 mg/dL (0.55-1.02); EST Glomerular Filtration Rate 100 mL/min (>60); Est Glom Filt Rate - Afr Amer 121 mL/min (>60); Estimated Creatinine Clearance 40.04 ml/min; Glucose 154 mg/dL (74-106); Potassium 3.2 mmol/L (3.5-5.1); Sodium Level 142 mmol/L (136-145)
[2022-10-08 08:11] LABS: Thyroid Stim Hormone (TSH) 2.06 uIU/mL (0.358-3.74)
[2022-10-08] MEDS: Menthol/Lanolin/Calamine/Znox 113 GM Tube 1 APPLIC TOPICAL ×2 (11:22→20:15)
[2022-10-08] MEDS: Aspirin E.C. 81 MG Tablet PO (11:22)
[2022-10-08] MEDS: hydroCHLOROthiazide 25 MG Tablet PO (11:23)
[2022-10-08] MEDS: Cholecalciferol (VIT D3) 25 MCG TABLET (1,000 UNITS) 50 MCG PO (11:23)
[2022-10-08] MEDS: Citalopram 20 MG Tablet PO (11:23)
[2022-10-08] MEDS: Ciprofloxacin 500 MG Tablet PO ×2 (11:23→20:16)
[2022-10-08] MEDS: Enoxaparin 40 MG/0.4 ML Syringe SC ×2 (11:23→20:17)
[2022-10-08] MEDS: Potassium Chloride Oral Tablet 20 MEQ 40 MEQ PO (11:32)
[2022-10-08] MEDS: Acetaminophen 500 MG Tablet 1000 MG PO ×2 (11:32→20:18)
[2022-10-08] MEDS: Bisacodyl 5 MG Tablet PO (11:33)
[2022-10-08 11:51] VITALS: BP 122/54; PULSE 74; RESP 18; TEMP 37.1; O2SAT 96
--- NOTE | 2022-10-08 12:05 | CASEMGMT ---
Social Work SW met w/pt in room, pt's daughter Selma, Son in law Scott, and daughter Daniella all in room. SW reviewed prior level of function and anticipated discharge plan. PCP: Dr. Barker Specialists: Dr. Quiñonez, cardiology. Insurance/Prescription coverage: [employer] Pharmacy: [employer] [facility] mail, [facility] in [place] LNOK: Two daughters, son in law LW/POA: As per family and pt, Selma is POA. SW asked them to bring in the documents. Living arrangements: Pt lives home alone, her two months ago. Pt independent with personal ADLs. She can drive but family mostly takes pt to where she needs to go. She does not cook, family will cook for pt and bring over meals. DME: Pt has a walker, cane, shower chair, bedside commode HHC/SNF: No history of either. SW spoke w/pt and family about plan. Family does think pt needs to go to rehab prior to coming home. SW provided a list of care home facilities in pt's insurance network, preferred geographic area, complete with quality and resource use data. Family would prefer TCU. SW explained do not know if they will have a bed. SW asked them to review the list and pick 2 backup choices in event TCU does not have a bed. They state understanding. Pt asked how it is covered, SW explained the referral and insurance authorization process. Son in law Scott then explained to SW that when they were in the ER yesterday he was not allowed back in the room, which he understood. However, he was then told he could not stay in the waiting room either, and the staff was very rude to him. SW offered support, left a message for pt advocate. Message left on TCU referral line. SW will follow up Monday. Plan: SNF, TCU vs another facility, precert needed. NISHA Navarro
[2022-10-08 14:19] VITALS: O2SAT 94
[2022-10-08 16:09] VITALS: BP 131/72; PULSE 66; RESP 18; TEMP 36.8; O2SAT 95
--- NOTE | 2022-10-08 16:27 | CASEMGMT ---
DEBRA CM in to complete VIRGEN form with patient. RN MIRELLA explained VIRGEN form to patient, patient voiced understanding. Patient signed VIRGEN form and filed in chart. Patient provided with copy of signed VIRGEN form. Patient had no further questions or concerns at this time.
[2022-10-08] MEDS: Lidocaine Jelly 2% 20 ML Syringe (URO-JET) 1 APPLIC TOPICAL ×2 (18:59→21:25)
[2022-10-08] MEDS: Hydrocortisone 100 MG/60 ML ENEMA RC (18:59)
[2022-10-08] MEDS: Atorvastatin Calcium 10 MG Tablet PO (20:18)
[2022-10-08 20:27] VITALS: BP 124/48; PULSE 76; RESP 16; TEMP 37; O2SAT 94
[2022-10-09] MEDS: Lidocaine Jelly 2% 20 ML Syringe (URO-JET) 1 APPLIC TOPICAL ×6 (00:18→23:04)
[2022-10-09 03:00] VITALS: BP 122/56; PULSE 70; RESP 18; TEMP 36.9; O2SAT 95
[2022-10-09] MEDS: Hydrocortisone 25 MG Suppository RC (04:03)
[2022-10-09] MEDS: Levothyroxine 25 MCG TABLET PO (04:05)
[2022-10-09] MEDS: metroNIDAZOLE 500 MG Tablet PO ×3 (04:05→22:59)
[2022-10-09] MEDS: Acetaminophen 500 MG Tablet 1000 MG PO ×3 (04:05→22:59)
[2022-10-09 06:13] LABS: Absolute Lymphocyte Count 1.34 X10^3/uL (0.83-4.51); Absolute Neutrophil Count 10.7 X10^3/uL (2.0-7.7); Basophil# 0.04 X10^3/uL; Basophil% 0.3 % (0-1); Eosinophils% 1.4 % (0-5); Hematocrit 36.9 % (37-47); Hemoglobin 11.9 g/dL (12.0-15.0); Lymphocyte # 1.34 X10^3/ul (0.83-4.51); Lymphocyte % 9.7 % (19-41); Mean Corp Hgb Conc 32.2 g/dL (32-36); Mean Corpuscular Hgb 30.8 pg (27.0-32.0); Mean Corpuscular Volume 95.6 fL (81-99); Monocyte% 10.9 % (0-10); NRBC Flagged by Analyzer 0 % (0-5); Neutrophil # 10.69 X10^3/uL (2.7-7.7); Neutrophil % 77.4 % (47-70); Platelet Count 188 K/mm3 (150-450); RBC Distribution Width CV 12.8 % (11.6-14.6); RBC Distribution Width SD 45.3 fl (35.1-43.9); Red Blood Count 3.86 M/mm3 (4.2-5.4); White Blood Count 13.8 K/mm3 (4.4-11.0)
[2022-10-09 07:06] LABS: ALB/GLOB Ratio 0.9 RATIO (0.9-2.4); AST(SGOT) 21 U/L (15-37); Alanine Aminotransfer ALT/SGPT 18 U/L (13-56); Albumin, Serum 2.7 g/dL (3.2-5.0); Alkaline Phosphatase 30 U/L (45-117); Anion Gap 6 (5-15); BUN 17 mg/dL (7-18); BUN/Creat Ratio 29.3 RATIO (10-20); Calcium,Total 7.9 mg/dL (8.5-10.1); Chloride 113 mmol/L (98-107); Creatinine, Serum 0.58 mg/dL (0.55-1.02); EST Glomerular Filtration Rate 107 mL/min (>60); Est Glom Filt Rate - Afr Amer 129 mL/min (>60); Estimated Creatinine Clearance 40.04 ml/min; Glucose 133 mg/dL (74-106); Phosphorus 2.2 mg/dL (2.5-4.9); Potassium 3.4 mmol/L (3.5-5.1); Protein, Total 5.7 g/dL (6.4-8.2); Sodium Level 144 mmol/L (136-145)
[2022-10-09 07:42] VITALS: BP 127/52; PULSE 64; RESP 18; TEMP 36.7; O2SAT 97
[2022-10-09] MEDS: Carvedilol 6.25 MG Tablet PO ×2 (08:00→16:54)
[2022-10-09] MEDS: Aspirin E.C. 81 MG Tablet PO (08:00)
[2022-10-09] MEDS: Potassium Chloride Oral Tablet 20 MEQ 40 MEQ PO (08:00)
[2022-10-09 09:10] VITALS: O2SAT 94
--- NOTE | 2022-10-09 09:55 | PCM.PROGNOTE ---
Subjective Subjective Chief complaint: Debility/rectal pain Patient did have a rough night having pain but frequent application of the lidocaine as ordered has been significantly helpful. I discussed with her that we will try and avoid narcotics to avoid worsening constipation. She has been tolerating the steroid enemas without any difficulty. If this continues to be a problem for the next 24 hours I will have GI take a look and see if there is any other options for her. She is beginning to pass stool and we will continue stool softeners. Objective Data Objective Data Vital Signs: Vital Signs Temp Pulse Resp BP Pulse Ox O2 Del Method 98.1 F 64 18 127/52 H 97 Room Air 10/09/22 07:42 10/09/22 07:42 10/09/22 07:42 10/09/22 07:42 10/09/22 07:42 10/09/22 08:20 Oxygen Delivery Method Room Air Weight: 117.2 kg Body Mass Index (BMI) 44.3 Intake & Output: Intake and Output for Last 24 Hours 10/07/22 10/08/22 10/09/22 23:59 23:59 23:59 Intake Total 2133.75 / 2133.75 1000 / 1000 Balance 2133.75 / 2133.75 1000 / 1000 Lab / Micro Data Result Diagrams: 10/09/22 05:58 10/09/22 05:58 Labs: Laboratory Results - last 24 hr 10/09/22 05:58: WBC 13.8 H, RBC 3.86 L, Hgb 11.9 L, Hct 36.9 L, MCV 95.6, MCH 30.8, MCHC 32.2, RDW Std Deviation 45.3 H, RDW Coeff of [place] 12.8, Plt Count 188, MPV 11.0, Immature Gran % (Auto) 0.300, Neut % (Auto) 77.4 H, Lymph % (Auto) 9.7 L, [place] % (Auto) 10.9 H, Eos % (Auto) 1.4, Baso % (Auto) 0.3, Absolute Neuts (auto) 10.7 H, Absolute Lymphs (auto) 1.34, Nucleated RBC % 0 10/09/22 05:58: Sodium 144, Potassium 3.4 L, Chloride 113 H, Carbon Dioxide 25.0, Anion Gap 6, BUN 17, Creatinine 0.58, Estim Creat Clear Calc 40.04, Est GFR (MDRD) Af Amer 129, Est GFR (MDRD) Non-Af 107, BUN/Creatinine Ratio 29.3 H, Glucose 133 H, Calcium 7.9 L, Phosphorus 2.2 L, Magnesium 2.0, Total Bilirubin 0.90, AST 21, ALT 18, Alkaline Phosphatase 30 L, Total Protein 5.7 L, Albumin 2.7 L, Globulin 3.0, Albumin/Globulin Ratio 0.9 Physical Exam Const alert, oriented x3, no apparent distress and well nourished Constitutional Narrative: Morbidly obese, elderly white female lying in bed in right side-lying, appears comfortable and nontoxic, awake upon my arrival, appears older than stated age General Appearance: cooperative HEENT normocephalic, head/scalp atraumatic and moist oral mucous membranes HEENT Narrative: Dentition is fair for age, Mallampati is 3, no thrush Resp normal respiratory effort, normal air movement and clear to auscultation bilaterally Effort and Inspection: Negative for tachypneic, respiratory distress or uses accessory muscles Auscultation: Negative for rales, rhonchi or wheezes Cardio regular rate, regular rhythm, S1 normal heart sound, S2 normal heart sound, no murmurs, no rub and no gallops GI normal to inspection, nondistended, normoactive bowel sounds, soft to palpation and non-tender Extremity normal capillary refill and no clubbing, cyanosis or edema Neuro no focal motor deficits and no sensory deficits noted Speech: speech normal Motor Exam: general weakness Psych thought process normal, cooperative and affect normal Psych Narrative: Very pleasant Appearance: appropriate Assessment & Plan Assessment/Plan (1) Proctitis: (2) Constipation: (3) Generalized weakness: (4) Debility: (5) Leukocytosis: (6) Hypokalemia: (7) Hypophosphatemia: PLAN: Plan Proctitis/constipation -Continue Cipro and Flagyl for now with probable transition to doxycycline at discharge for a total of 21 days -Continue lidocaine topically every 2 hours as needed for pain -Continue hydrocortisone enema but increase to twice daily -Continue Dulcolax stool softeners -Avoid narcotics as this will make constipation worse -Encourage hydration -TSH was within normal limits -Schedule Tylenol 1000 mg every 8 hours and discontinue NSAIDs -If still having significant problems tomorrow we will have GI evaluate her for any other ongoing issues that could be addressed further or other recommendations Debility/generalized weakness -PT/OT both have evaluated the patient and recommended ongoing therapy at discharge -Case management/social work following and messages have been left for TCU is that there is desired place of discharge -Patient will need pre-CERT Hypokalemia -repeat p.o. 40 mill equivalents today as potassium is improved but not normalized -Repeat lab in a.m. -Magnesium levels within normal limits Hypophosphatemia -Give 21 mmol of phosphorus and repeat in a.m. Leukocytosis -Suspect related to the above -See above for treatment -White count is slowly trending down Hypothyroidism -Continue home levothyroxine -TSH was within normal limits HTN/HPL -Continue carvedilol 6.25 mg p.o. twice daily -Continue hydrochlorothiazide 25 mg daily -BP is within goal Hyperlipidemia -Continue rosuvastatin 5 mg daily Mitral valve prolapse/nonrheumatic aortic valve stenosis -No current issues -Continued outpatient follow-up Anxiety/depression -Continue home citalopram Morbid obesity -BMI is 44.4 -Recommend weight loss -Complicates treatment, prognosis, outcomes DVT prophylaxis -Continue enoxaparin 40 mg SQ twice daily CODE STATUS -Full code Charges/Coding Visit Charges Inpatient E&M: 80246 Subs Hosp L2
[2022-10-09] MEDS: Menthol/Lanolin/Calamine/Znox 113 GM Tube 1 APPLIC TOPICAL ×2 (10:04→23:00)
[2022-10-09] MEDS: Ciprofloxacin 500 MG Tablet PO ×2 (10:08→22:59)
[2022-10-09] MEDS: Citalopram 20 MG Tablet PO (10:08)
[2022-10-09] MEDS: Bisacodyl 5 MG Tablet PO (10:09)
[2022-10-09] MEDS: hydroCHLOROthiazide 25 MG Tablet PO (10:09)
[2022-10-09] MEDS: Enoxaparin 40 MG/0.4 ML Syringe SC ×2 (10:10→22:59)
[2022-10-09] MEDS: Cholecalciferol (VIT D3) 25 MCG TABLET (1,000 UNITS) 50 MCG PO (10:10)
[2022-10-09] MEDS: 0.9% Saline Lock 10 ML Syringe IV (10:36)
[2022-10-09] MEDS: Hydrocortisone 100 MG/60 ML ENEMA RC ×2 (12:42→22:59)
[2022-10-09 15:00] VITALS: BP 133/52; PULSE 64; RESP 18; TEMP 36.6; O2SAT 98
[2022-10-09 22:57] VITALS: BP 129/72; PULSE 64; RESP 22; TEMP 36.6; O2SAT 95
[2022-10-09] MEDS: Atorvastatin Calcium 10 MG Tablet PO (22:59)
[2022-10-09] MEDS: MELATONIN 3 MG TABLET PO (23:03)
[2022-10-10 03:39] VITALS: BP 133/43; PULSE 64; RESP 24; TEMP 36.6; O2SAT 95
[2022-10-10 05:52] LABS: Absolute Lymphocyte Count 1.65 X10^3/uL (0.83-4.51); Absolute Neutrophil Count 6.4 X10^3/uL (2.0-7.7); Basophil# 0.05 X10^3/uL; Basophil% 0.5 % (0-1); Eosinophil# 0.41 X10^3/uL; Eosinophils% 4.3 % (0-5); Hematocrit 37.7 % (37-47); Hemoglobin 12.1 g/dL (12.0-15.0); Lymphocyte # 1.65 X10^3/ul (0.83-4.51); Lymphocyte % 17.2 % (19-41); Mean Corp Hgb Conc 32.1 g/dL (32-36); Mean Corpuscular Hgb 30.9 pg (27.0-32.0); Mean Corpuscular Volume 96.4 fL (81-99); Mean Platelet Vol. 11.1 fl (6.2-12.0); Monocyte# 1.03 X10^3/uL; Monocyte% 10.7 % (0-10); NRBC Flagged by Analyzer 0 % (0-5); Neutrophil % 66.8 % (47-70); Platelet Count 212 K/mm3 (150-450); RBC Distribution Width CV 12.8 % (11.6-14.6); RBC Distribution Width SD 45.4 fl (35.1-43.9); Red Blood Count 3.91 M/mm3 (4.2-5.4); White Blood Count 9.6 K/mm3 (4.4-11.0)
[2022-10-10] MEDS: Levothyroxine 25 MCG TABLET PO (05:53)
[2022-10-10] MEDS: metroNIDAZOLE 500 MG Tablet PO ×2 (05:53→15:39)
[2022-10-10] MEDS: Acetaminophen 500 MG Tablet 1000 MG PO ×2 (05:53→15:38)
[2022-10-10 06:12] LABS: Anion Gap 8 (5-15); BUN 13 mg/dL (7-18); BUN/Creat Ratio 25.8 RATIO (10-20); Calcium,Total 8.1 mg/dL (8.5-10.1); Chloride 108 mmol/L (98-107); EST Glomerular Filtration Rate 126 mL/min (>60); Est Glom Filt Rate - Afr Amer 152 mL/min (>60); Estimated Creatinine Clearance 40.04 ml/min; Glucose 113 mg/dL (74-106); Phosphorus 2.4 mg/dL (2.5-4.9); Potassium 3.1 mmol/L (3.5-5.1); Sodium Level 142 mmol/L (136-145)
--- NOTE | 2022-10-10 08:53 | CASEMGMT ---
Addendum entered by Lindsey Cottrell 10/10/22 14:04: Michelle messaged and reported that precert has been obtained. SW in to inform pt and daughter. HUMPHREY explained a room is being cleaned at [facility] and once it is finished pt can d/c there. Pt and family voiced understanding. SW faxed all discharge orders to TCU and requested TCU call when pt room is available. Pt covid test negaitve. SW made copies of discharge orders and placed on pt chart. Sent original orders in envelope with pt upon discharge.?? Disposition: TCU, skilled, convalescent, level of care? PAYAM Doshi? Original Note: Social Work SW received report from weekend SW that informed pt had been referred to [facility] TCU. HUMPHREY reached out to Michelle at [facility] to inquire about acceptance. Michelle informed pt has been accepted and precert is being started this AM. HUMPHREY informed pt of acceptance and that precert has been started. PLAN: TCU, pending acceptance. Lindsey Cottrell
--- NOTE | 2022-10-10 08:54 | CASEMGMT ---
Social Work SW in to verify AD with pt. Pt explained daughter is HCPOA. Pt confirmed also has LW. SW explained these documents are not on file with [facility] and that pt or family can bring them in. Pt voiced understanding, stated would discuss with daughter who has copies. Lindsey Cottrell, PAYAM
[2022-10-10] MEDS: hydroCHLOROthiazide 25 MG Tablet PO (09:34)
[2022-10-10] MEDS: Cholecalciferol (VIT D3) 25 MCG TABLET (1,000 UNITS) 50 MCG PO (09:34)
[2022-10-10] MEDS: Potassium Chloride Oral Tablet 20 MEQ 60 MEQ PO (09:35)
[2022-10-10] MEDS: Na Biphos/Potassium Phosphate PACKET 1 PACKET PO ×3 (09:35→16:52)
[2022-10-10] MEDS: Citalopram 20 MG Tablet PO (09:36)
[2022-10-10] MEDS: Aspirin E.C. 81 MG Tablet PO (09:36)
[2022-10-10] MEDS: Carvedilol 6.25 MG Tablet PO ×2 (09:36→16:52)
[2022-10-10] MEDS: Ciprofloxacin 500 MG Tablet PO (09:36)
[2022-10-10] MEDS: Menthol/Lanolin/Calamine/Znox 113 GM Tube 1 APPLIC TOPICAL (09:37)
[2022-10-10] MEDS: Hydrocortisone 100 MG/60 ML ENEMA RC (09:38)
[2022-10-10] MEDS: Enoxaparin 40 MG/0.4 ML Syringe SC (09:38)
[2022-10-10] MEDS: Lidocaine Jelly 2% 20 ML Syringe (URO-JET) 1 APPLIC TOPICAL ×2 (09:40→16:42)
[2022-10-10 09:41] VITALS: BP 112/38; PULSE 67; RESP 18; TEMP 36.6; O2SAT 97
[2022-10-10 10:31] VITALS: O2SAT 95
--- NOTE | 2022-10-10 11:15 | PCM.DC.SUM ---
Providers Date of Admission: 10/07/22 Date of Discharge: 10/10/22 Primary Care Physician: Dr. Dang Barker MD Reason For Visit: INABILITY TO AMBULATE, PROCTITIS Diagnosis Discharge Diagnosis (1) Proctitis: Status: Acute Code(s): K62.89 - Other specified diseases of anus and rectum (2) Constipation: Status: Acute Code(s): K59.00 - Constipation, unspecified (3) Generalized weakness: Status: Acute Code(s): R53.1 - Weakness (4) Debility: Status: Acute Code(s): R53.81 - Other malaise (5) Leukocytosis: Status: Acute Code(s): D72.829 - Elevated white blood cell count, unspecified (6) Hypokalemia: Status: Acute Code(s): E87.6 - Hypokalemia (7) Hypophosphatemia: Status: Acute Code(s): E83.39 - Other disorders of phosphorus metabolism Medications at Discharge Home Medications hydrochlorothiazide 25 mg tablet 25 mg PO DAILY 11/26/18 aspirin 81 mg tablet,delayed release (Adult Aspirin Regimen) 81 mg PO DAILY 02/19/19 cholecalciferol (vitamin D3) 50 mcg (2,000 unit) tablet 2,000 unit PO DAILY 02/19/19 citalopram 20 mg tablet 20 mg PO DAILY 02/19/19 levothyroxine 25 mcg tablet 25 mcg PO DAILY 01/28/21 rosuvastatin 5 mg tablet 5 mg PO DAILY 01/28/21 carvedilol 6.25 mg tablet 6.25 mg PO BID #180 tabs 05/11/22 acetaminophen 500 mg tablet 1,000 mg PO Q8 #0 tabs 10/10/22 bisacodyl 5 mg tablet,delayed release 5 mg PO DAILY #0 tabs 10/10/22 ciprofloxacin HCl 500 mg tablet 500 mg PO BID #30 tabs 10/10/22 food supplemt, lactose-reduced (Ensure Compact oral liquid) 118 ml PO TIDCM #0 mL 10/10/22 hydrocortisone 100 mg/60 mL enema 100 mg (60 mL) VA BID #0 mL 10/10/22 lidocaine HCl 2 % mucosal jelly in applicator 1 applic topical Q2H PRN HEMORRHOIDS #0 mL 10/10/22 metronidazole 500 mg tablet 500 mg PO TID #10 tabs 10/10/22 sennosides 8.6 mg-docusate sodium 50 mg tablet (Stool Softener-Stimulant Laxative) 2 tab PO BID PRN PRN Constipation #0 tabs 10/10/22 Hospital Course Operations None Procedures - (CT of the abdomen/pelvis) Summary of Care Provided Minutes Spent on Discharge: 39 Hospital Course: Mrs. Hutchins is a 77-year-old female who presented to the emergency department on 10/07/2022 with rectal pain and constipation.? She evidently has had issues moving her bowels in the past and has been passing some soft stool but unable to get herself cleared out.? Patient family reported that she is having rectal pain and when she has to go to the bathroom she will start screaming because the pain is so severe.? Family was also concerned because she seems to becoming very weak.? There had been no significant blood with her stools and she had a recent colonoscopy that was unremarkable.? Pain is burning and sharp in quality and increases with defecation and coughing.? It reportedly improved with lying on her side.? On presentation she had a leukocytosis with a white count of 16.3 and a left shift at 81.2% but her labs were overall otherwise unremarkable.? A CT of the abdomen/pelvis was performed which demonstrated moderate perirectal fat stranding consistent with proctitis and rectal distention up to 5.5 cm with fecal material, coronary artery disease, previous hysterectomy, 3.3 cm adnexal cyst, and a simple cyst of the left kidney that was 5.8 cm with no follow-up recommendations made.? In the emergency department she was able to pass some stool with the help of lidocaine topical perirectally and a fleets enema.? She was going to be started on Anusol suppositories with a burst of prednisone as well as Cipro and Flagyl and GI follow-up however upon reevaluation family was concerned that her pain was not well enough controlled and she was having so much difficulty ambulating with worsening weakness that they did not feel she could go home.? GI was called for any further recommendations for pain and Dr. Silva recommended adding budesonide foam or hydrocortisone enemas.? Given her debility she was admitted to the hospital for therapy evaluation as well and possible placement if needed. She was admitted to the medical floor and placed on hydrocortisone suppositories and Cipro and Flagyl. Patient continued to have severe pain with defecation so we added twice daily hydrocortisone enemas, topical lidocaine to help with pain, scheduled Tylenol and she was maintained on oral antibiotics. The patient slowly improved. She had some electrolyte abnormalities throughout her stay which were corrected with supplementation parenterally. By the a.m. of 10/10/2022 the patient reported she felt much better than she had upon presentation and even in the last 24 hours she was dramatically improved. Her white count had resolved and was now 9.6 from 15.8 on admission. Physical and Occupational Therapy evaluated the patient and deemed her appropriate for ongoing therapy services. Hopefully with the improvement in her pain her rehab will go much quicker and she will not need a prolonged stay at TCU. We received approval from her insurance company for discharge to TCU on 10/10/2022. Given the patient's dramatic improvement we did feel she was stable. She will have ongoing hydrocortisone enemas twice daily and as needed lidocaine available as well as continued scheduled Tylenol. Patient will be discharged on Cipro and Flagyl to be completed on October 22, 2022 to complete a total of 14-day course. I have instructed her to follow-up with Dr. Silva within the next month for further evaluation and with her primary care physician within the next 2 to 4 weeks after discharge from TCU. Patient was able to be discharged to the transitional care unit in stable condition on 10/10/2022. I will have repeat labs drawn on 10/14/2022. Discharge diagnoses: Proctitis Constipation Debility/generalized weakness Hypokalemia Hypophosphatemia Leukocytosis-resolved Hypothyroidism Hypertension Hyperlipidemia Mitral valve prolapse Nonrheumatic aortic valve stenosis Anxiety Depression Morbid obesity Physical Exam Narrative Patient states she is feeling much better in the last 24 hours. She was able to sit up in a chair twice yesterday which was not able to be done previously secondary to severe pain. Const alert, oriented x3, no apparent distress, healthy appearing and well nourished Constitutional Narrative: Morbidly obese, elderly white female lying in bed sleeping upon my arrival but awakens easily, appears comfortable and nontoxic, appears older than stated age General Appearance: cooperative, comfortable, well kempt and well developed Exam Limitations: no limitations Nutritional Appearance: morbidly obese HEENT normocephalic, head/scalp atraumatic and moist oral mucous membranes HEENT Narrative: Mild hearing loss, Mallampati 3, dentition is poor Eyes PERRL, EOMs intact bilaterally and conjunctivae normal Eyes Narrative: No scleral icterus Neck no lymphadenopathy, supple and no JVD Neck Narrative: Trachea is midline, no thyroid enlargement Resp normal respiratory effort, normal air movement, no retractions, no use of accessory muscles and clear to auscultation bilaterally Auscultation: Negative for rales, rhonchi or wheezes Cardio regular rate, regular rhythm, S1 normal heart sound, S2 normal heart sound, no murmurs, no rub and no gallops GI normal to inspection, nondistended, normoactive bowel sounds, soft to palpation and non-tender Extremity normal capillary refill and no clubbing, cyanosis or edema Skin no rashes or lesions noted, no wounds, skin turgor normal and no jaundice Neuro oriented x3, CN's II-XII intact bilaterally, moves all extremities and no focal motor deficits Speech: speech normal Motor Exam: general weakness Psych thought process normal, cooperative and affect normal Psych Narrative: Very pleasant Appearance: appropriate Weight / BMI Weight Weight: 117.2 kg Body Mass Index (BMI) 44.3 ABG / Lab / Microbiology Data Result Diagrams: 10/10/22 05:37 10/10/22 05:37 Laboratory: Laboratory Results - last 24 hr 10/10/22 05:37: WBC 9.6, RBC 3.91 L, Hgb 12.1, Hct 37.7, MCV 96.4, MCH 30.9, MCHC 32.1, RDW Std Deviation 45.4 H, RDW Coeff of Cody 12.8, Plt Count 212, MPV 11.1, Immature Gran % (Auto) 0.500, Neut % (Auto) 66.8, Lymph % (Auto) 17.2 L, [place] % (Auto) 10.7 H, Eos % (Auto) 4.3, Baso % (Auto) 0.5, Absolute Neuts (auto) 6.4, Absolute Lymphs (auto) 1.65, Nucleated RBC % 0 10/10/22 05:37: Sodium 142, Potassium 3.1 L, Chloride 108 H, Carbon Dioxide 26.0, Anion Gap 8, BUN 13, Creatinine 0.50 L, Estim Creat Clear Calc 40.04, Est GFR (MDRD) Af Amer 152, Est GFR (MDRD) Non-Af 126, BUN/Creatinine Ratio 25.8 H, Glucose 113 H, Calcium 8.1 L, Phosphorus 2.4 L Meaningful Use Info Meaningful Use Diagnoses (Choose all that apply): None applicable Discharge Plan Admission Admit Date/Time: 10/07/22 21:30 Primary Reason for Your Visit: Pain with defecation and generalized weakness Attending Provider: Kelle Steen Primary Care Provider: Dang Barker Consulting Providers: Russel Moffett Discharge Orders/Prescriptions Prescriptions: New acetaminophen 500 mg Tablet 1,000 mg PO Q8 Qty: 0 0RF bisacodyl 5 mg Tablet,Delayed Release (Dr/Ec) 5 mg PO DAILY Qty: 0 0RF ciprofloxacin HCl 500 mg Tablet 500 mg PO BID Qty: 30 0RF Rx Instructions: for 11.5 more days (21 more doses) hydrocortisone 100 mg/60 mL Enema 100 mg VA BID Qty: 0 0RF Ensure Compact Liquid 118 ml PO TIDCM Qty: 0 0RF lidocaine HCl 2 % Jelly In Applicator 1 applic topical Q2H PRN (Reason: HEMORRHOIDS) Qty: 0 0RF Protocol: *Topical Application Instructions APPLICATION INSTRUCTIONS: to rectal irritations Rx Instructions: to rectum sennosides-docusate sodium [Stool Softener-Stimulant Laxat] 8.6-50 mg Tablet 2 tab PO BID PRN PRN (Reason: Constipation) Qty: 0 0RF metronidazole 500 mg Tablet 500 mg PO TID Qty: 10 0RF Rx Instructions: for 32 more doses (11.5 days) Continued citalopram 20 mg tablet 20 mg PO DAILY cholecalciferol (vitamin D3) 2,000 unit tablet 2,000 unit PO DAILY aspirin [Adult Aspirin Regimen] 81 mg tablet,delayed release (DR/EC) 81 mg PO DAILY rosuvastatin 5 mg tablet 5 mg PO DAILY levothyroxine 25 mcg tablet 25 mcg PO DAILY hydrochlorothiazide 25 MG tablet 25 mg PO DAILY carvedilol 6.25 mg tablet 6.25 mg PO BID Qty: 180 3RF Rx Instructions: must administer with a meal/food Discontinued hydrocortisone 2.5 % cream 1 applic TOPICAL ONCE PRN (Reason: Constipation) Referrals / Follow Up: Dang Barker MD [Primary Care Provider] - Within 2 Weeks FriendJey DO [Med Staff - Active Staff] - Within 1 Month (for proctitis) Disposition Disposition (needs filled in before D/C Order can be placed): Nursing Home Facility Charges/Coding Visit Charges Inpatient E&M: 68897 SNF Disch >30 Min
--- NOTE | 2022-10-10 11:30 | PCM.TXEXTCAR ---
Diet Diet Order/Speech Therapy: 10/07/22 23:15 Diet: Cardiac - Heart Healthy Food consistency:: Regular Liquid Consistency:: Regular/Thin Diet Comments: Please put ensure compact on tray Routine Orders/Code Status Suppository Frequency: Daily PRN O2 Frequency: PRN Keep PO Greater than or Equal to (%): 92 Routine Lab Work: CBC (on 10/14/2022) and BMP (on 10/14/2022) Code Status: Full Code Suggestions for Active Care Change Position every (hours): 2 Hours to sit in a chair: 2 Times a day to sit in chair: 2 Therapies Physical Therapy: Eval and Treat Occupational Therapy: Eval and Treat Problem/Diagnosis (1) Proctitis: Status: Acute Code(s): K62.89 - Other specified diseases of anus and rectum (2) Constipation: Status: Acute Code(s): K59.00 - Constipation, unspecified (3) Generalized weakness: Status: Acute Code(s): R53.1 - Weakness (4) Debility: Status: Acute Code(s): R53.81 - Other malaise (5) Leukocytosis: Status: Acute Code(s): D72.829 - Elevated white blood cell count, unspecified (6) Hypokalemia: Status: Acute Code(s): E87.6 - Hypokalemia (7) Hypophosphatemia: Status: Acute Code(s): E83.39 - Other disorders of phosphorus metabolism Allergies/Procedures Done in Hospital Allergies No Known Allergies Allergy (Verified 10/07/22 15:30) Procedures: - (CT of the abdomen/pelvis) Type of Care/Length of Stay Estimated LOS: Convalescent Care Less Than 30 days Type of Care Needed: Skilled Rehab Potential: Good Prognosis: Good Additional Orders/Day of Discharge Day of Discharge: 10/10/22 Dietary and Speech Recommendations Dietitian Recommendations/Changes: Continue Cardiac diet to manage medical conditions. Continue 120mL Ensure Compact TID with medpass to provide supplemental energy. Discharge Plan Admission Admit Date/Time: 10/07/22 21:30 Primary Reason for Your Visit: Pain with defecation and generalized weakness Attending Provider: Kelle Steen Primary Care Provider: Dang Barker Consulting Providers: Russel Moffett Discharge Orders/Prescriptions Prescriptions: New acetaminophen 500 mg Tablet 1,000 mg PO Q8 Qty: 0 0RF bisacodyl 5 mg Tablet,Delayed Release (Dr/Ec) 5 mg PO DAILY Qty: 0 0RF ciprofloxacin HCl 500 mg Tablet 500 mg PO BID Qty: 30 0RF Rx Instructions: for 11.5 more days (21 more doses) hydrocortisone 100 mg/60 mL Enema 100 mg MD BID Qty: 0 0RF Ensure Compact Liquid 118 ml PO TIDCM Qty: 0 0RF lidocaine HCl 2 % Jelly In Applicator 1 applic topical Q2H PRN (Reason: HEMORRHOIDS) Qty: 0 0RF Protocol: *Topical Application Instructions APPLICATION INSTRUCTIONS: to rectal irritations Rx Instructions: to rectum sennosides-docusate sodium [Stool Softener-Stimulant Laxat] 8.6-50 mg Tablet 2 tab PO BID PRN PRN (Reason: Constipation) Qty: 0 0RF metronidazole 500 mg Tablet 500 mg PO TID Qty: 10 0RF Rx Instructions: for 32 more doses (11.5 days) Continued citalopram 20 mg tablet 20 mg PO DAILY cholecalciferol (vitamin D3) 2,000 unit tablet 2,000 unit PO DAILY aspirin [Adult Aspirin Regimen] 81 mg tablet,delayed release (DR/EC) 81 mg PO DAILY rosuvastatin 5 mg tablet 5 mg PO DAILY levothyroxine 25 mcg tablet 25 mcg PO DAILY hydrochlorothiazide 25 MG tablet 25 mg PO DAILY carvedilol 6.25 mg tablet 6.25 mg PO BID Qty: 180 3RF Rx Instructions: must administer with a meal/food Discontinued hydrocortisone 2.5 % cream 1 applic TOPICAL ONCE PRN (Reason: Constipation) Referrals / Follow Up: Dang Barker MD [Primary Care Provider] - Within 2 Weeks Jey Silva DO [Med Staff - Active Staff] - Within 1 Month (for proctitis) Disposition Disposition (needs filled in before D/C Order can be placed): Residential Facility
[2022-10-10 11:32] VITALS: O2SAT 95
--- NOTE | 2022-10-10 11:44 | PHA.DC.MR ---
Pharmacy Service has performed discharge medication reconciliation for this patient. The patient's discharge medication list was reviewed for discrepancies and discrepancies were resolved. Home Medications hydrochlorothiazide 25 mg tablet 25 mg PO DAILY 11/26/18 aspirin 81 mg tablet,delayed release (Adult Aspirin Regimen) 81 mg PO DAILY 02/19/19 cholecalciferol (vitamin D3) 50 mcg (2,000 unit) tablet 2,000 unit PO DAILY 02/19/19 citalopram 20 mg tablet 20 mg PO DAILY 02/19/19 levothyroxine 25 mcg tablet 25 mcg PO DAILY 01/28/21 rosuvastatin 5 mg tablet 5 mg PO DAILY 01/28/21 carvedilol 6.25 mg tablet 6.25 mg PO BID #180 tabs 05/11/22 acetaminophen 500 mg tablet 1,000 mg PO Q8 #0 tabs 10/10/22 bisacodyl 5 mg tablet,delayed release 5 mg PO DAILY #0 tabs 10/10/22 ciprofloxacin HCl 500 mg tablet 500 mg PO BID #30 tabs 10/10/22 food supplemt, lactose-reduced (Ensure Compact oral liquid) 118 ml PO TIDCM #0 mL 10/10/22 hydrocortisone 100 mg/60 mL enema 100 mg (60 mL) [place] BID #0 mL 10/10/22 lidocaine HCl 2 % mucosal jelly in applicator 1 applic topical Q2H PRN HEMORRHOIDS #0 mL 10/10/22 metronidazole 500 mg tablet 500 mg PO TID #10 tabs 10/10/22 sennosides 8.6 mg-docusate sodium 50 mg tablet (Stool Softener-Stimulant Laxative) 2 tab PO BID PRN PRN Constipation #0 tabs 10/10/22
--- NOTE | 2022-10-10 15:07 | CHAPLAIN ---
Type of Pastoral Visit _x__ Initial Visit ___ Follow-up Visit ___ On-call Visit ___ General Patient Visit ___ Spiritual Assessment ___ Family Conference ___ Bereavement ___ Rapid Response ___ Code Blue ___ Other (describe below) Pastoral Care Referral From _x__ Patient ___ Family ___ Nurse ___ Physician ___ Mail Handler ___ Restaurant And Bar Manager ___ Other (describe below) Sacrament/Intervention _x__ Active listening ___ Anointing ___ Faith _x__ Bereavement ___ Communion ___ Malissa exploration ___ ___ Life review _x__ Prayer ___ Reconciliation ___ Sacrament of Sick _x__ Supportive presence ___ Wedding ___ Other (describe below) Pastoral Comments patient talks about much loss and grief in last year losing , three sisters, and son-in-law, a dear friend, and her children's father; pt states she is able to cope because of her two daughters and grandchildren; pt expects transfer for therapy; pt describes her pain and hope for a better future; prayer is welcomed
[2022-10-10 15:40] VITALS: BP 134/47; PULSE 70; RESP 18; TEMP 36.6; O2SAT 95
== END 2022-10-10 17:06 | disposition skilled nursing facility (03) ==
LOC: ED 21:15 → MS3 10-08 01:04
PROVIDERS: Admitting Provider Hospitalist; Emergency Provider Emergency Medicine; PCP Internal Medicine; Visit Provider Internal Medicine
DX: K62.89 Other specified diseases of anus and rectum (principal); E66.01 Morbid (severe) obesity due to excess calories; Z68.41 Body mass index [BMI] 40.0-44.9, adult; E87.6 Hypokalemia; R53.1 Weakness; F32.A Depression, unspecified; R26.2 Difficulty in walking, not elsewhere classified; Z79.82 Long term (current) use of aspirin; E78.5 Hyperlipidemia, unspecified; K59.00 Constipation, unspecified; R15.9 Full incontinence of feces; I12.9 Hypertensive chronic kidney disease with stage 1 through stage 4 chronic kidney disease, or unspecified chronic kidney disease; F41.9 Anxiety disorder, unspecified; E83.39 Other disorders of phosphorus metabolism; Z79.52 Long term (current) use of systemic steroids; E03.9 Hypothyroidism, unspecified; I08.0 Rheumatic disorders of both mitral and aortic valves; Z79.890 Hormone replacement therapy; Z79.899 Other long term (current) drug therapy; L89.151 Pressure ulcer of sacral region, stage 1; N18.2 Chronic kidney disease, stage 2 (mild)
CPT/HCPCS: 36415; 74177; 80048; 80053; 83735; 84100; 84443; 85025; 87426; 90471; 96361; 96365; 96366; 96372; 96375; 97162; 97166; 97530; 97535; 97802; 99221; 99285; J7030; J7050; Q9967; A4216; G0378

== ENCOUNTER 2022-10-10 17:15 | Inpatient (IN) | payer MEDICARE, SELFPAY ==
[2022-10-10 17:28] VITALS: BP 146/50; PULSE 85; RESP 18; TEMP 36.3; O2SAT 96
[2022-10-10] MEDS: Ciprofloxacin 500 MG Tablet PO (18:30)
[2022-10-10] MEDS: Carvedilol 6.25 MG Tablet PO (18:31)
[2022-10-10] MEDS: Hydrocortisone 100 MG/60 ML ENEMA RC (18:31)
[2022-10-10] MEDS: Lidocaine Jelly 2% 20 ML Syringe (URO-JET) 1 APPLIC TOPICAL (18:38)
--- NOTE | 2022-10-10 19:38 | HP.PCM_ITS ---
HPI - General General Date of Admission: 10/10/22 Date of Service: 10/11/22 Chief Complaint: Here for rehabilitation. HPI Narrative 10/07/2022 ROMAN RAMIREZ, is a 77 Female who presents to [facility] Emergency Department with constipation. Rectal pain, constipation, history of constipation. Passing soft stool, but unable to clear out. Screaming from rectal pain, feeling weak. WBC 16.3, BMP okay. CT abdomen/pelvis showed proctitis. Dr. Friend recommended budesonide foam, hydrocortisone enemas. Toradol, Anusol HC given. Too weak to go home, she lives alone. 10/07/2022 Admit to Hospital. Cipro, Flagyl, Anusol for proctiitis. IV fluids for dehydration. PT/OT for debility. 10/08/2022 Cipro, Flagyl, then Doxycycline for 21 day course for proctitis. Anusol 3x/day for proctitis. Hydrocortisone enema at bedtime. PT/OT for SNF. KCL 40meq x 1 to replete potassium. 10/09/2022 Rectal pain, Lidocaine helpful. Replete phosphorous. WBC improving. 10/10/2022 Admit to TCU with debility, here for rehabilitation, strengthening, prior to discharge home alone. [facility] Medical History Anxiety DDD (degenerative disc disease), lumbar DJD (degenerative joint disease) of knee Dyspnea on exertion Essential hypertension Hyperlipidemia Hypothyroidism Lichen sclerosus of female genitalia LVH (left ventricular hypertrophy) MVP (mitral valve prolapse) Nonrheumatic aortic (valve) stenosis Vaginal enterocele Vitamin D deficiency Home Medications hydrochlorothiazide 25 mg tablet 25 mg PO DAILY blood pressure 11/26/18 [History Last Taken 10/07/22] aspirin 81 mg tablet,delayed release (Adult Aspirin Regimen) 81 mg PO DAILY heart health 02/19/19 [History Last Taken 10/07/22] cholecalciferol (vitamin D3) 50 mcg (2,000 unit) tablet 2,000 unit PO DAILY supplement 02/19/19 [History Last Taken 10/07/22] citalopram 20 mg tablet 20 mg PO DAILY depression 02/19/19 [History Last Taken 10/07/22] levothyroxine 25 mcg tablet 25 mcg PO DAILY thyroid 01/28/21 [History Last Taken 10/07/22] rosuvastatin 5 mg tablet 5 mg PO DAILY cholesterol 01/28/21 [History Last Taken Unknown] acetaminophen 500 mg tablet 1,000 mg PO Q8 pain 10/10/22 [History Last Taken Unknown] bisacodyl 5 mg tablet,delayed release 5 mg PO DAILY constipation 10/10/22 [History Last Taken Unknown] carvedilol 6.25 mg tablet 6.25 mg PO BID heart 10/10/22 [History Last Taken Unknown] ciprofloxacin HCl 500 mg tablet 500 mg PO BID antibiotic 10/10/22 [History Last Taken Unknown] food supplemt, lactose-reduced (Ensure Compact oral liquid) 118 ml PO TIDCM supplement 10/10/22 [History Last Taken Unknown] hydrocortisone 100 mg/60 mL enema 100 mg [place] BID itching 10/10/22 [History Last Taken Unknown] lidocaine HCl 2 % mucosal jelly in applicator 1 applic topical Q2H PRN HEMORRHOIDS #0 mL 10/10/22 [Rx Last Taken Unknown] metronidazole 500 mg tablet 500 mg PO TID antibiotic 10/10/22 [History Last Taken Unknown] sennosides 8.6 mg-docusate sodium 50 mg tablet (Stool Softener-Stimulant Laxative) 2 tab PO BID PRN PRN Constipation #0 tabs 10/10/22 [Rx Last Taken Unknown] Allergy/AdvReac Type Severity Reaction Status Date / Time No Known Allergies Allergy Verified 10/07/22 15:30 Family History Mother Hypertension Myocardial infarction Surgical History History of appendectomy History of hysterectomy History of tonsillectomy Social History (Updated 10/10/22 @ 19:[address] Daniel Campos MD) household members: none Smoking Status: Never smoker alcohol intake: never substance use type: does not use caffeine: Yes Type: coffee Number of servings: 1 ROS Constitutional Constitutional: Denies chills, fever(s) or weight gain ENT HEENT: Denies headache(s), nasal congestion or nasal discharge Cardiovascular Cardiovascular: Denies chest pain or palpitations Respiratory/Chest Respiratory/Chest: Denies cough, excessive phlegm production or shortness of breath with exertion Gastrointestinal Gastrointestinal: Reports nausea and vomiting; Denies abdominal pain Genitourinary Genitourinary: Denies dysuria Musculoskeletal Musculoskeletal: Denies joint pain or joint swelling Integumentary Integumentary: Denies rash or wounds Neurologic Neurologic: Denies focal weakness, numbness or tingling Psychiatric Psychiatric: Denies anxiety, auditory hallucinations, depression, homicidal ideation or suicidal ideation Vital Signs Vital Signs Vital Signs: 10/10/22 17:28 Temperature 97.3 F L Temperature Source Temporal Pulse Rate 85 Respiratory Rate 18 Blood Pressure 146/50 H Blood Pressure Mean 82 Blood Pressure Source Monitor Blood Pressure Position Semi-Fowlers Blood Pressure Location Left Arm Pulse Ox 96 Oxygen Delivery Method Nasal Cannula Physical Exam Const alert General Appearance: cooperative HEENT normocephalic Eyes PERRL and EOMs intact bilaterally Neck supple, no JVD and no carotid bruits Resp normal respiratory effort, normal air movement and clear to auscultation bilaterally Cardio regular rate and regular rhythm GI normal to inspection, nondistended, normoactive bowel sounds, non-tender and non-distended Extremity normal capillary refill General Extremity: Negative for edema Skin no rashes or lesions noted General Skin Exam: no breakdown Psych affect normal Appearance: appropriate Results Lab / Micro Data Result Diagrams: 10/11/22 05:22 10/11/22 05:22 Assessment & Plan Assessment/Plan (1) Debility: (2) Rectal pain: (3) Hypokalemia: (4) Hypophosphatemia: (5) Hypomagnesemia: (6) Constipation: (7) Hypertension: (8) Depression: (9) Hypothyroidism: (10) Hyperlipidemia: (11) Hemorrhoids: PLAN: Plan 77 year old female with below past medical history hospitalized for intractable rectal pain secondary to proctitis, complicated by hypokalemia, hypophosphatemia, hypomagnesemia, admitted to TCU with debility, here for rehabilitation, strengthening, prior to discharge home alone. * Debility - PT/OT. * Pain - Tylenol 1000mg q8. * Bowel - Dulcolax 5mg daily, senna/colace 2 tablets bid prn. * Adult immunization - Administer pneumonia vaccine, covid19 vaccine, flu vacc ine as appropriate. * DVT prophylaxis - Hold, monitor. * Coronary artery disease - Coreg 6.25mg bid, Aspirin 81mg daily. * Hyperlipidemia - Atorvastatin 10mg qhs. * Proctitis - Cipro 250mg bid thru 10/20/2022, Flagyl 250mg bid thru 10/21/2022, Hydrocortisone enema 100mg pr bid, Lidocaine topical Q2H prn. * Depression - Citalopram 20mg daily, stable chronic detention use, GDR not recommended. * Hypertension - Coreg 6.25mg bid, HCTZ 25mg daily. * Hypothyroidism - Levothyroxine 25mcg daily. * Vitamin D deficiency - D3 50mcg daily.
[2022-10-10] MEDS: Acetaminophen 500 MG Tablet 1000 MG PO (21:22)
[2022-10-10] MEDS: metroNIDAZOLE 500 MG Tablet PO (21:23)
[2022-10-10] MEDS: Atorvastatin Calcium 10 MG Tablet PO (21:23)
[2022-10-10 22:47] VITALS: PULSE 63; RESP 16
[2022-10-10 23:19] VITALS: BMI 33.5
[2022-10-11 05:51] LABS: Absolute Lymphocyte Count 1.74 X10^3/uL (0.83-4.51); Basophil# 0.03 X10^3/uL; Basophil% 0.4 % (0-1); Eosinophil# 0.32 X10^3/uL; Hematocrit 37.8 % (37-47); Hemoglobin 12.2 g/dL (12.0-15.0); Lymphocyte # 1.74 X10^3/ul (0.83-4.51); Mean Corp Hgb Conc 32.3 g/dL (32-36); Mean Corpuscular Hgb 30.8 pg (27.0-32.0); Mean Corpuscular Volume 95.5 fL (81-99); Mean Platelet Vol. 11.2 fl (6.2-12.0); Monocyte% 10.1 % (0-10); NRBC Flagged by Analyzer 0 % (0-5); Neutrophil # 4.98 X10^3/uL (2.7-7.7); Platelet Count 215 K/mm3 (150-450); RBC Distribution Width CV 12.6 % (11.6-14.6); RBC Distribution Width SD 43.9 fl (35.1-43.9); Red Blood Count 3.96 M/mm3 (4.2-5.4); White Blood Count 7.9 K/mm3 (4.4-11.0)
[2022-10-11] MEDS: Carvedilol 6.25 MG Tablet PO ×2 (05:53→17:52)
[2022-10-11] MEDS: Cholecalciferol (VIT D3) 25 MCG TABLET (1,000 UNITS) 50 MCG PO (05:53)
[2022-10-11] MEDS: Citalopram 20 MG Tablet PO (05:54)
[2022-10-11] MEDS: Acetaminophen 500 MG Tablet 1000 MG PO ×3 (05:54→21:25)
[2022-10-11] MEDS: Levothyroxine 25 MCG TABLET PO (05:54)
[2022-10-11] MEDS: Bisacodyl 5 MG Tablet PO (05:54)
[2022-10-11] MEDS: hydroCHLOROthiazide 25 MG Tablet PO (05:54)
[2022-10-11] MEDS: Hydrocortisone 100 MG/60 ML ENEMA RC ×2 (05:55→18:42)
[2022-10-11] MEDS: metroNIDAZOLE 500 MG Tablet PO (05:55)
[2022-10-11] MEDS: Ciprofloxacin 500 MG Tablet PO (05:55)
[2022-10-11] MEDS: Lidocaine Jelly 2% 20 ML Syringe (URO-JET) 1 APPLIC TOPICAL ×2 (06:09→18:42)
[2022-10-11 06:17] LABS: Anion Gap 6 (5-15); BUN 16 mg/dL (7-18); BUN/Creat Ratio 31.1 RATIO (10-20); Calcium,Total 8.3 mg/dL (8.5-10.1); Chloride 108 mmol/L (98-107); Creatinine, Serum 0.51 mg/dL (0.55-1.02); EST Glomerular Filtration Rate 123 mL/min (>60); Est Glom Filt Rate - Afr Amer 149 mL/min (>60); Estimated Creatinine Clearance 40.04 ml/min; Glucose 103 mg/dL (74-106); Potassium 3.6 mmol/L (3.5-5.1); Sodium Level 143 mmol/L (136-145)
[2022-10-11] MEDS: proMETHazine 25 MG Tablet PO (08:08)
[2022-10-11] MEDS: Aspirin E.C. 81 MG Tablet PO (08:09)
[2022-10-11 09:44] VITALS: BMI 33.5
[2022-10-11 10:00] VITALS: PULSE 74; RESP 16; O2SAT 98
[2022-10-11] MEDS: Nystatin Powder 15gm Bottle 1 APPLIC TOPICAL ×2 (10:37→17:52)
[2022-10-11] MEDS: Tuberculin,Purif.prot.deriv. 50 TU/ML Vial 0.1 ML ID (10:37)
[2022-10-11] MEDS: Menthol/Lanolin/Calamine/Znox 113 GM Tube 1 APPLIC TOPICAL ×2 (10:37→21:25)
--- NOTE | 2022-10-11 11:41 | PCM.PN.DRR ---
TCU RX Drug Regimen Review Subjective: TCU Admission. 77 YOF presented to the ER with constipation. Hospitalized for intractable rectal pain secondary to proctitis, complicated by hypokalemia, hypophosphatemia, hypomagnesemia. Admitted to TCU with debility for strengthening and rehabilitation. Objective: Allergies No Known Allergies Allergy (Verified 10/07/22 15:30) Current Medications Generic Name Dose Route Start Last Admin Trade Name Landryq PRN Reason Stop Dose Admin Acetaminophen 1,000 mg 10/10/22 22:00 10/11/22 05:54 Acetaminophen 500 Mg Tablet PO 1,000 mg Q8 RUDI Administration Aspirin 81 mg 10/11/22 08:00 10/11/22 08:09 Aspirin E.C. 81 Mg Tablet PO 81 mg DAILYCM RUDI Administration Atorvastatin Calcium 10 mg 10/10/22 22:00 10/10/22 21:23 Atorvastatin Calcium 10 Mg Tablet PO 10 mg QHS RUDI Administration Bisacodyl 5 mg 10/11/22 06:00 10/11/22 05:54 Bisacodyl 5 Mg Tablet PO 5 mg DAILY RUDI Administration Calamine/Phenol 1 applic 10/11/22 10:00 10/11/22 10:37 Menthol/Lanolin/Calamine/Znox 113 Gm Tube TOPICAL 1 applic BID@1000,2200 RUDI Administration Protocol Carvedilol 6.25 mg 10/10/22 18:00 10/11/22 05:53 Carvedilol 6.25 Mg Tablet PO 6.25 mg BID RUDI Administration Cholecalciferol 50 mcg 10/11/22 06:00 10/11/22 05:53 Cholecalciferol (Vit D3) 25 Mcg Tablet (1,000 Units) PO 50 mcg DAILY RUDI Administration Ciprofloxacin HCl 250 mg 10/11/22 18:00 Ciprofloxacin 250 Mg Tablet PO 10/20/22 18:01 BID RUDI Citalopram Hydrobromide 20 mg 10/11/22 06:00 10/11/22 05:54 Citalopram 20 Mg Tablet PO 20 mg DAILY RUDI Administration Hydrochlorothiazide 25 mg 10/11/22 06:00 10/11/22 05:54 Hydrochlorothiazide 25 Mg Tablet PO 25 mg DAILY RUDI Administration Hydrocortisone 100 mg 10/10/22 18:00 10/11/22 05:55 Hydrocortisone 100 Mg/60 Ml Enema RC 100 mg BID RUDI Administration Levothyroxine Sodium 25 mcg 10/11/22 06:00 10/11/22 05:54 Levothyroxine 25 Mcg Tablet PO 25 mcg DAILY RUDI Administration Lidocaine HCl 1 applic 10/10/22 18:16 10/11/22 06:09 Lidocaine Jelly 2% 20 Ml Syringe (Uro-Jet) TOPICAL 1 applic Q2H PRN Administration HEMORRHOIDS Protocol Melatonin 10 mg 10/11/22 22:00 Melatonin 10 Mg Tablet PO QHS RUDI Metronidazole 250 mg 10/11/22 18:00 Metronidazole 250 Mg Tablet PO 10/21/22 06:01 BID RUDI Nystatin 1 applic 10/11/22 10:00 10/11/22 10:37 Nystatin Powder 15gm Bottle TOPICAL 1 applic BID RUDI Administration Protocol Promethazine HCl 25 mg 10/11/22 07:49 10/11/22 08:08 Promethazine 25 Mg Tablet PO 25 mg Q4H PRN PRN Administration NAUSEA/VOMITING Senna/Docusate Sodium 2 tablet 10/10/22 17:47 Senna/Docusate Sodium 1 Tablet PO BID PRN PRN Constipation Sodium Chloride 10 - 40 ml 10/10/22 22:46 0.9% Saline Lock 10 Ml Syringe IV UD PRN SALINE FLUSH Tuberculin PPD 0.1 ml 10/18/22 10:00 Tuberculin,Purif.Prot.Deriv. 50 Tu/Ml Vial ID 10/18/22 10:01 X1 ONE Problem List (Last Reviewed 10/10/22 @ 19:[address] Daniel Campos MD) Hemorrhoids (Acute) Hyperlipidemia (Acute) Hypothyroidism (Acute) Depression (Acute) Hypertension (Chronic) Hypomagnesemia (Acute) Hypophosphatemia (Acute) Hypokalemia (Acute) Rectal pain (Acute) Debility (Acute) Constipation (Acute) Vital Signs Temp Pulse Resp BP Pulse Ox O2 Del Method 97.3 F L 63 16 146/50 H 96 Nasal Cannula 10/10/22 17:28 10/10/22 22:47 10/10/22 22:47 10/10/22 17:28 10/10/22 17:28 10/11/22 07:15 Oxygen Delivery Method Nasal Cannula Weight: 88.536 kg Body Mass Index (BMI) 33.5 Sodium 143 mmol/L (136-145) 10/11/22 05:22 Potassium 3.6 mmol/L (3.5-5.1) 10/11/22 05:22 Chloride 108 mmol/L (98-107) H 10/11/22 05:22 Carbon Dioxide 29.0 mmol/L (21.0-32.0) 10/11/22 05:22 Anion Gap 6 (5-15) 10/11/22 05:22 BUN 16 mg/dL (7-18) 10/11/22 05:22 Creatinine 0.51 mg/dL (0.55-1.02) L 10/11/22 05:22 Est GFR (MDRD) Af Amer 149 mL/min (>60) 10/11/22 05:22 Est GFR (MDRD) Non-Af 123 mL/min (>60) 10/11/22 05:22 BUN/Creatinine Ratio 31.1 RATIO (10-20) H 10/11/22 05:22 Glucose 103 mg/dL (74-106) 10/11/22 05:22 Assessment/Plan: 1. Pain: acetaminophen 1000mg PO Q8. Please continue to monitor for increased pain. 2. Bowel: bisacodyl 5mg PO daily and senna/docusate 2T PO BID PRN constipation. Last documented bowel movement was today, 10/11/22. Please continue to monitor for constipation and PRN usage (no doses given). 3. Proctitis: ciprofloxacin 250mg PO BID thru 10/20/22. metronidazole 250mg PO BID thru 10/21/22, hydrocortisone enema 100mg RC BID and lidocaine 2% jelly topical Q2H PRN hemorrhoids. Please continue to monitor for S/S of infection, PRN usage (2 doses given), hemorrhoids, diarrhea, tendon pain (black box warning for tendonitis/tendon rupture) and metallic taste. 4. CAD/hypertension: carvedilol 6.25mg PO BID, hydrochlorothiazide 25mg PO daily and aspirin 81mg PO DAILYCM. Please continue to monitor HR (last 63), BP (last 146/50), potassium (last 3.6mmol/L), sodium (last 143mmol/L), renal function, hemoglobin (last 12.2g/dL) and S/S of bleeding. 5. Hyperlipidemia: atorvastatin 10mg PO QHS. Please consider ordering a lipid panel if clinically appropriate as the last panel is from 11/2012. Thanks. Please continue to monitor LFTs (last 10/09/22) and muscle pain. 6. Hypothyroidism: levothyroxine 25mcg PO daily. Please continue to monitor TSH (last 10/08/22) and S/S of hypo/hyperthyroidism. 7. Vitamin D deficiency: cholecalciferol 50mcg PO daily. Please consider ordering a vitamin D level if clinically appropriate as the last level is from 05/2013. Thanks. 8. Nausea/vomiting: promethazine 25mg PO Q4H PRN nausea/vomiting. Resident has had 1 dose so far. Please continue to monitor for anticholinergic side effects (BEERs criteria) and delirium/dementia (BEERs criteria). Assessment/Plan for indications treated with psychotropic medications: 1. Depression: citalopram 20mg PO daily. Please see physician note regarding GDR. Please continue to monitor for suicidal ideation (black box warning), falls/fractures (BEERs criteria) and sodium (last 143mmol/L). Medical chart and medication regimen reviewed. The following medication irregularities or issues were identified: *1. Atorvastatin 10mg PO QHS. Please consider ordering a lipid panel if clinically appropriate as the last panel is from 11/2012. Thanks. *2. Cholecalciferol 50mcg PO daily. Please consider ordering a vitamin D level if clinically appropriate as the last level is from 05/2013. Thanks. *3. Melatonin 10mg PO QHS. I did not see a documented indication for this medication. Please consider adding the indication. Thanks. Date of Note:: 10/11/22
[2022-10-11] MEDS: 0.9% Saline Lock 10 ML Syringe IV (12:29)
[2022-10-11 13:49] VITALS: BP 141/59; PULSE 79; RESP 16; TEMP 36.4; O2SAT 96
--- NOTE | 2022-10-11 15:52 | CASEMGMT ---
Social Work See attached assessment for complete social work assessment. This drug abuse social worker met with patient and patient daughterDaniella in room. Introduced self and drug abuse social worker role. Patient agreeable to speak with this drug abuse social worker and provided verbal approval for this drug abuse social worker to speak openly with Daniella present. This drug abuse social worker going over code status with patient, patient wishes to be a Full Code, MOLST form completed and signed by patient, form placed on patient chart. 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 Patient reports to have health care power of privacy attorney and patient daughterSelma is HCPOA. Patient plans to notify Selma and have Selma bring HCPOA documents into TCU to be placed on patient chart as document are not currently on patient chart. This drug abuse social worker going over patient insurance coverage process with patient next insurance update due on 10/12/2022. This drug abuse social worker communicating to patient that continued stay approval by insurance is not guaranteed, patient voiced understanding. This drug abuse social worker updated nursing staff on patient confirmed code status. Social Work to continue to follow. Marcell ROWE, NISHA
[2022-10-11] MEDS: Ciprofloxacin 250 MG Tablet PO (17:52)
[2022-10-11] MEDS: MELATONIN 10 MG TABLET PO (21:25)
[2022-10-11] MEDS: Atorvastatin Calcium 10 MG Tablet PO (21:25)
[2022-10-12] MEDS: Cholecalciferol (VIT D3) 25 MCG TABLET (1,000 UNITS) 50 MCG PO (06:08)
[2022-10-12] MEDS: Acetaminophen 500 MG Tablet 1000 MG PO ×3 (06:08→21:38)
[2022-10-12] MEDS: Ciprofloxacin 250 MG Tablet PO ×2 (06:08→18:04)
[2022-10-12] MEDS: hydroCHLOROthiazide 25 MG Tablet PO (06:08)
[2022-10-12] MEDS: Nystatin Powder 15gm Bottle 1 APPLIC TOPICAL ×2 (06:09→18:04)
[2022-10-12] MEDS: Hydrocortisone 100 MG/60 ML ENEMA RC ×2 (06:09→21:48)
[2022-10-12] MEDS: Carvedilol 6.25 MG Tablet PO ×2 (06:09→18:04)
[2022-10-12] MEDS: Bisacodyl 5 MG Tablet PO (06:09)
[2022-10-12] MEDS: Levothyroxine 25 MCG TABLET PO (06:09)
[2022-10-12] MEDS: Citalopram 20 MG Tablet PO (06:09)
[2022-10-12] MEDS: Lidocaine Jelly 2% 20 ML Syringe (URO-JET) 1 APPLIC TOPICAL ×2 (06:15→21:47)
[2022-10-12 06:36] VITALS: O2SAT 96
[2022-10-12] MEDS: Menthol/Lanolin/Calamine/Znox 113 GM Tube 1 APPLIC TOPICAL ×2 (09:35→21:39)
[2022-10-12] MEDS: 0.9% Saline Lock 10 ML Syringe IV ×2 (09:41→21:53)
--- NOTE | 2022-10-12 09:42 | NS ---
Provided copy of daily specials/first choice menu w/ instructions on how to order. Res appreciative of increased choices.
[2022-10-12 09:43] VITALS: PULSE 79; O2SAT 97
--- NOTE | 2022-10-12 11:39 | NURSING ---
Manager Of Marketing Note; Activity Asset: Noel Guardado is independent in her choice of daily activities. She enjoys drawing, reading, watching tv and spending time w/her family and friends. She stated she will attend small activities when not in therapy.
[2022-10-12 14:24] VITALS: BP 146/41; PULSE 65; RESP 15; TEMP 36.6; O2SAT 96
--- NOTE | 2022-10-12 14:49 | CHAPLAIN ---
Type of Pastoral Visit _x__ Initial Visit ___ Follow-up Visit ___ On-call Visit ___ General Patient Visit ___ Spiritual Assessment ___ Family Conference ___ Bereavement ___ Rapid Response ___ Code Blue ___ Other (describe below) Pastoral Care Referral From _x__ Patient ___ Family ___ Nurse ___ Physician ___ Streets And Buildings Decorator ___ Clinical Investigator ___ Other (describe below) Sacrament/Intervention _x__ Active listening ___ Anointing ___ Scientology ___ Bereavement ___ Communion ___ Malissa exploration ___ ___ Life review ___ Prayer ___ Reconciliation ___ Sacrament of Sick ___ Supportive presence ___ Wedding ___ Other (describe below) Pastoral Comments patient is welcoming and remembers this medical appointment scheduler; family members are in the room; pt gives brief update; pt admits that times are up and down but persevering; pt welcomes a prayer before she goes to [facility]; offer of future visits accepted
--- NOTE | 2022-10-12 18:13 | NURSING ---
Patient requesting to hold off on Cortenema at this time.
[2022-10-12] MEDS: MELATONIN 10 MG TABLET PO (21:39)
[2022-10-12] MEDS: Atorvastatin Calcium 10 MG Tablet PO (21:39)
[2022-10-13 05:57] LABS: Hematocrit 38.7 % (37-47); Hemoglobin 12.4 g/dL (12.0-15.0)
[2022-10-13] MEDS: Acetaminophen 500 MG Tablet 1000 MG PO ×3 (07:34→20:13)
[2022-10-13] MEDS: Levothyroxine 25 MCG TABLET PO (07:35)
[2022-10-13] MEDS: Ciprofloxacin 250 MG Tablet PO ×2 (07:35→17:07)
[2022-10-13] MEDS: Cholecalciferol (VIT D3) 25 MCG TABLET (1,000 UNITS) 50 MCG PO (07:35)
[2022-10-13] MEDS: Nystatin Powder 15gm Bottle 1 APPLIC TOPICAL ×2 (07:36→17:07)
[2022-10-13] MEDS: Bisacodyl 5 MG Tablet PO (07:36)
[2022-10-13] MEDS: Citalopram 20 MG Tablet PO (07:36)
[2022-10-13] MEDS: hydroCHLOROthiazide 25 MG Tablet PO (07:36)
[2022-10-13] MEDS: Carvedilol 6.25 MG Tablet PO ×2 (07:36→17:07)
[2022-10-13 07:41] VITALS: BP 150/54; PULSE 66; RESP 16
--- NOTE | 2022-10-13 07:41 | NURSING ---
Patient was unavailable when attempted to admin 0600 medications due to using bathroom and getting washed for the day, meds administered at this time, patient declined enema as ordered until later. Patient up in recliner watching television, drawing picture on clip board. Patient states 'I am feeling so much better today. No distress observed or reported. Denies requests. Call light in reach.
[2022-10-13] MEDS: Hydrocortisone 100 MG/60 ML ENEMA RC ×2 (08:11→20:11)
[2022-10-13] MEDS: Lidocaine Jelly 2% 20 ML Syringe (URO-JET) 1 APPLIC TOPICAL ×2 (08:11→20:20)
[2022-10-13 09:44] VITALS: PULSE 65; RESP 18; O2SAT 97
[2022-10-13] MEDS: 0.9% Saline Lock 10 ML Syringe IV (14:12)
[2022-10-13] MEDS: Menthol/Lanolin/Calamine/Znox 113 GM Tube 1 APPLIC TOPICAL ×2 (14:14→20:14)
[2022-10-13 14:42] VITALS: BP 157/50; PULSE 73; RESP 19; TEMP 36.6; O2SAT 95
[2022-10-13] MEDS: MELATONIN 10 MG TABLET PO (20:13)
[2022-10-13] MEDS: Atorvastatin Calcium 10 MG Tablet PO (20:14)
[2022-10-14] MEDS: Cholecalciferol (VIT D3) 25 MCG TABLET (1,000 UNITS) 50 MCG PO (04:27)
[2022-10-14] MEDS: Levothyroxine 25 MCG TABLET PO (04:27)
[2022-10-14] MEDS: Ciprofloxacin 250 MG Tablet PO ×2 (04:28→18:33)
[2022-10-14] MEDS: Acetaminophen 500 MG Tablet 1000 MG PO ×3 (04:28→19:59)
[2022-10-14] MEDS: Nystatin Powder 15gm Bottle 1 APPLIC TOPICAL ×2 (04:28→18:32)
[2022-10-14 04:30] VITALS: BP 155/53; PULSE 62
[2022-10-14] MEDS: Carvedilol 6.25 MG Tablet PO ×2 (04:33→18:33)
[2022-10-14] MEDS: Hydrocortisone 100 MG/60 ML ENEMA RC ×2 (06:18→19:56)
[2022-10-14] MEDS: Lidocaine Jelly 2% 20 ML Syringe (URO-JET) 1 APPLIC TOPICAL ×2 (06:18→19:56)
[2022-10-14 07:30] VITALS: O2SAT 93
[2022-10-14] MEDS: Bisacodyl 5 MG Tablet PO (08:09)
[2022-10-14] MEDS: Citalopram 20 MG Tablet PO (08:09)
[2022-10-14] MEDS: hydroCHLOROthiazide 25 MG Tablet PO (08:09)
[2022-10-14] MEDS: Menthol/Lanolin/Calamine/Znox 113 GM Tube 1 APPLIC TOPICAL ×2 (08:10→19:58)
[2022-10-14 16:00] VITALS: BP 149/44; PULSE 68; RESP 14; TEMP 36.6
[2022-10-14] MEDS: Atorvastatin Calcium 10 MG Tablet PO (19:57)
[2022-10-14] MEDS: MELATONIN 10 MG TABLET PO (19:58)
[2022-10-14 20:16] VITALS: PULSE 64; RESP 16; O2SAT 97
[2022-10-15] MEDS: Cholecalciferol (VIT D3) 25 MCG TABLET (1,000 UNITS) 50 MCG PO (06:00)
[2022-10-15] MEDS: Levothyroxine 25 MCG TABLET PO (06:00)
[2022-10-15] MEDS: Acetaminophen 500 MG Tablet 1000 MG PO ×3 (06:00→20:40)
[2022-10-15] MEDS: Carvedilol 6.25 MG Tablet PO ×2 (06:00→18:19)
[2022-10-15] MEDS: Ciprofloxacin 250 MG Tablet PO ×2 (06:01→18:19)
[2022-10-15] MEDS: Nystatin Powder 15gm Bottle 1 APPLIC TOPICAL ×2 (06:01→18:20)
[2022-10-15] MEDS: 0.9% Saline Lock 10 ML Syringe IV ×2 (06:08→10:02)
--- NOTE | 2022-10-15 06:13 | NURSING ---
Patient declines cortenema at this time, states will accept after Therapy ADLs scheduled for 0700. No distress observed or reported. Patient states feeling better each day. Call light in reach.
[2022-10-15 07:21] LABS: Absolute Lymphocyte Count 2.78 X10^3/uL (0.83-4.51); Basophil# 0.09 X10^3/uL; Basophil% 1.1 % (0-1); Hematocrit 35.9 % (37-47); Hemoglobin 11.7 g/dL (12.0-15.0); Lymphocyte # 2.78 X10^3/ul (0.83-4.51); Lymphocyte % 33.3 % (19-41); Mean Corp Hgb Conc 32.6 g/dL (32-36); Mean Corpuscular Hgb 31.3 pg (27.0-32.0); Mean Platelet Vol. 10.3 fl (6.2-12.0); Monocyte# 0.85 X10^3/uL; Monocyte% 10.2 % (0-10); NRBC Flagged by Analyzer 0 % (0-5); Neutrophil # 4.02 X10^3/uL (2.7-7.7); Neutrophil % 48.1 % (47-70); Platelet Count 244 K/mm3 (150-450); RBC Distribution Width CV 13.2 % (11.6-14.6); RBC Distribution Width SD 45.7 fl (35.1-43.9); Red Blood Count 3.74 M/mm3 (4.2-5.4); White Blood Count 8.4 K/mm3 (4.4-11.0)
[2022-10-15] MEDS: Citalopram 20 MG Tablet PO (08:36)
[2022-10-15] MEDS: Bisacodyl 5 MG Tablet PO (08:36)
[2022-10-15] MEDS: Hydrocortisone 100 MG/60 ML ENEMA RC ×2 (08:39→18:21)
[2022-10-15] MEDS: Menthol/Lanolin/Calamine/Znox 113 GM Tube 1 APPLIC TOPICAL ×2 (08:40→20:39)
[2022-10-15 08:44] VITALS: BP 141/42; PULSE 64
--- NOTE | 2022-10-15 08:45 | NURSING ---
Addendum entered by Lauren Fernandez 10/15/22 11:36: updated DR campos, new order to encourage fluids Original Note: held HCTZ this AM d/t low diastolic pressure, pt also c/o slight lightheadedness this AM. will update dr Campos
[2022-10-15 10:00] VITALS: PULSE 71; RESP 16; O2SAT 95
[2022-10-15 13:20] VITALS: BP 160/49; PULSE 68; RESP 16; TEMP 35.7; O2SAT 96
[2022-10-15] MEDS: MELATONIN 10 MG TABLET PO (20:40)
[2022-10-15] MEDS: Atorvastatin Calcium 10 MG Tablet PO (20:40)
[2022-10-16 00:30] VITALS: BP 162/49; PULSE 69; TEMP 36.2; O2SAT 96
--- NOTE | 2022-10-16 00:30 | NURSING ---
Pt calls and thinks her hands are numb. Upon arrival to room, pt laying on right side. Questions this nurse what is wrong. Informs this nurse she has a headache that is throbbing and aching w/ some pressure behind her eyes. Unable to rate severity and reports this type of pain has occurred in the past in addition to some blurred vision to the right eye. Has seen an eye dr, but thinks the last time she may have been prior to the onset of COVID-19. Family has been taking care of this for pt. Notes hands feel numb. After sitting up and moving hands, symptoms resolved. Notes she feels hot, cold, and damp. Skin is dry. Back is cool but gown is wide open to the back. Vitals obtained and recorded. Blood sugar is 102. Speech is clear. Denies any facial numbness. No facial droop. PERRLA b/l. EOMS smooth and intact. Answers all orientation questions appropriately. Denies any facial numbness or numbness to BLE. B/L hand grasps and foot push/pulls are equal. Skin warm to touch to b/l upper and lower extremities. Denies any chest pain, dizziness, lightheadedness, nausea, or vomiting. Reports shortness of breath which is baseline and has been for an extended period of time. Pt then requests to go to the bathroom. Gait us steady w/ wheeled walker x 1 assist. Voids and a moderate amount of bright red blood is in the toilet. Upon assisting pt back to bed, she thinks this may have all been a dream and verbalizes this has occurred in the past. Will continue to monitor.
[2022-10-16 00:51] LABS: Bedside Glucose 102 mg/dL (74-106)
[2022-10-16] MEDS: Ciprofloxacin 250 MG Tablet PO ×2 (06:24→17:39)
[2022-10-16] MEDS: Levothyroxine 25 MCG TABLET PO (06:24)
[2022-10-16] MEDS: Acetaminophen 500 MG Tablet 1000 MG PO ×3 (06:24→21:43)
[2022-10-16] MEDS: Cholecalciferol (VIT D3) 25 MCG TABLET (1,000 UNITS) 50 MCG PO (06:24)
[2022-10-16] MEDS: Carvedilol 6.25 MG Tablet PO ×2 (06:24→17:39)
[2022-10-16] MEDS: 0.9% Saline Lock 10 ML Syringe IV ×2 (06:25→21:48)
[2022-10-16] MEDS: Nystatin Powder 15gm Bottle 1 APPLIC TOPICAL ×2 (06:35→17:38)
[2022-10-16 07:48] VITALS: O2SAT 96
[2022-10-16] MEDS: Citalopram 20 MG Tablet PO (08:52)
[2022-10-16] MEDS: Bisacodyl 5 MG Tablet PO (08:52)
[2022-10-16] MEDS: Hydrocortisone 100 MG/60 ML ENEMA RC ×2 (08:53→17:39)
[2022-10-16] MEDS: hydroCHLOROthiazide 25 MG Tablet PO (08:53)
[2022-10-16] MEDS: Menthol/Lanolin/Calamine/Znox 113 GM Tube 1 APPLIC TOPICAL ×2 (08:53→21:45)
[2022-10-16 13:28] VITALS: BP 150/50; PULSE 72; RESP 17; TEMP 36.5; O2SAT 99
[2022-10-16] MEDS: Atorvastatin Calcium 10 MG Tablet PO (21:42)
[2022-10-16] MEDS: MELATONIN 10 MG TABLET PO (21:42)
[2022-10-16 21:50] VITALS: O2SAT 95
[2022-10-17] MEDS: Acetaminophen 500 MG Tablet 1000 MG PO ×3 (06:00→21:37)
[2022-10-17] MEDS: Cholecalciferol (VIT D3) 25 MCG TABLET (1,000 UNITS) 50 MCG PO (06:00)
[2022-10-17] MEDS: Ciprofloxacin 250 MG Tablet PO ×2 (06:00→17:34)
[2022-10-17] MEDS: Levothyroxine 25 MCG TABLET PO (06:00)
[2022-10-17] MEDS: Nystatin Powder 15gm Bottle 1 APPLIC TOPICAL ×2 (06:04→17:35)
[2022-10-17] MEDS: Hydrocortisone 100 MG/60 ML ENEMA RC ×2 (06:10→18:39)
[2022-10-17] MEDS: Citalopram 20 MG Tablet PO (08:43)
[2022-10-17] MEDS: Bisacodyl 5 MG Tablet PO (08:43)
[2022-10-17] MEDS: Carvedilol 6.25 MG Tablet PO ×2 (08:43→17:34)
[2022-10-17] MEDS: hydroCHLOROthiazide 25 MG Tablet PO (08:44)
--- NOTE | 2022-10-17 09:29 | NURSING ---
Outreach Clinician Note; MDS Complete
[2022-10-17] MEDS: Menthol/Lanolin/Calamine/Znox 113 GM Tube 1 APPLIC TOPICAL ×2 (14:01→21:39)
[2022-10-17 15:23] VITALS: BP 112/61; PULSE 73; RESP 20; TEMP 37.1; O2SAT 97
--- NOTE | 2022-10-17 16:25 | NURSING ---
Patient and daughters updated that staff member tested covid positive.
[2022-10-17] MEDS: 0.9% Saline Lock 10 ML Syringe IV (18:38)
[2022-10-17] MEDS: Atorvastatin Calcium 10 MG Tablet PO (21:37)
[2022-10-17] MEDS: MELATONIN 10 MG TABLET PO (21:37)
[2022-10-18 05:39] LABS: Absolute Lymphocyte Count 1.11 X10^3/uL (0.83-4.51); Absolute Neutrophil Count 9.7 X10^3/uL (2.0-7.7); Basophil# 0.04 X10^3/uL; Basophil% 0.3 % (0-1); Eosinophil# 0.01 X10^3/uL; Eosinophils% 0.1 % (0-5); Hematocrit 38.4 % (37-47); Hemoglobin 12.6 g/dL (12.0-15.0); Lymphocyte # 1.11 X10^3/ul (0.83-4.51); Lymphocyte % 9.7 % (19-41); Mean Corp Hgb Conc 32.8 g/dL (32-36); Mean Corpuscular Hgb 31.3 pg (27.0-32.0); Mean Corpuscular Volume 95.5 fL (81-99); Mean Platelet Vol. 10.3 fl (6.2-12.0); Monocyte# 0.56 X10^3/uL; Monocyte% 4.9 % (0-10); NRBC Flagged by Analyzer 0 % (0-5); Neutrophil # 9.67 X10^3/uL (2.7-7.7); Neutrophil % 84.1 % (47-70); Platelet Count 320 K/mm3 (150-450); RBC Distribution Width CV 13.2 % (11.6-14.6); RBC Distribution Width SD 46.6 fl (35.1-43.9); Red Blood Count 4.02 M/mm3 (4.2-5.4); White Blood Count 11.5 K/mm3 (4.4-11.0)
[2022-10-18 06:01] LABS: Anion Gap 5 (5-15); BUN 20 mg/dL (7-18); BUN/Creat Ratio 33.8 RATIO (10-20); Chloride 107 mmol/L (98-107); Creatinine, Serum 0.59 mg/dL (0.55-1.02); EST Glomerular Filtration Rate 104 mL/min (>60); Est Glom Filt Rate - Afr Amer 126 mL/min (>60); Estimated Creatinine Clearance 40.04 ml/min; Glucose 146 mg/dL (74-106); Sodium Level 140 mmol/L (136-145)
[2022-10-18] MEDS: 0.9% Saline Lock 10 ML Syringe IV ×2 (06:08→13:33)
[2022-10-18] MEDS: Acetaminophen 500 MG Tablet 1000 MG PO ×3 (06:08→22:12)
[2022-10-18] MEDS: Cholecalciferol (VIT D3) 25 MCG TABLET (1,000 UNITS) 50 MCG PO (06:08)
[2022-10-18] MEDS: Hydrocortisone 100 MG/60 ML ENEMA RC ×2 (06:09→18:32)
[2022-10-18] MEDS: Ciprofloxacin 250 MG Tablet PO ×2 (06:09→17:20)
[2022-10-18] MEDS: Levothyroxine 25 MCG TABLET PO (06:09)
[2022-10-18] MEDS: Nystatin Powder 15gm Bottle 1 APPLIC TOPICAL ×2 (06:09→17:20)
[2022-10-18] MEDS: Bisacodyl 5 MG Tablet PO (08:41)
[2022-10-18] MEDS: hydroCHLOROthiazide 25 MG Tablet PO (08:41)
[2022-10-18] MEDS: Citalopram 20 MG Tablet PO (08:41)
[2022-10-18] MEDS: Carvedilol 6.25 MG Tablet PO ×2 (08:41→17:20)
[2022-10-18 11:50] VITALS: BMI 35.0
[2022-10-18] MEDS: Menthol/Lanolin/Calamine/Znox 113 GM Tube 1 APPLIC TOPICAL ×2 (13:34→22:11)
[2022-10-18] MEDS: Tuberculin,Purif.prot.deriv. 50 TU/ML Vial 0.1 ML ID (13:34)
[2022-10-18 14:46] VITALS: BP 104/45; PULSE 72; RESP 18; TEMP 36.5; O2SAT 96
[2022-10-18] MEDS: Atorvastatin Calcium 10 MG Tablet PO (22:12)
[2022-10-18] MEDS: MELATONIN 10 MG TABLET PO (22:12)
[2022-10-19] MEDS: Acetaminophen 500 MG Tablet 1000 MG PO ×3 (06:17→21:09)
[2022-10-19] MEDS: Levothyroxine 25 MCG TABLET PO (06:17)
[2022-10-19] MEDS: Cholecalciferol (VIT D3) 25 MCG TABLET (1,000 UNITS) 50 MCG PO (06:18)
[2022-10-19] MEDS: Ciprofloxacin 250 MG Tablet PO ×2 (06:18→17:28)
[2022-10-19] MEDS: Hydrocortisone 100 MG/60 ML ENEMA RC ×2 (06:19→18:53)
[2022-10-19] MEDS: Nystatin Powder 15gm Bottle 1 APPLIC TOPICAL ×2 (06:25→18:53)
[2022-10-19 08:00] VITALS: BP 154/47; PULSE 73; O2SAT 96
[2022-10-19] MEDS: Citalopram 20 MG Tablet PO (08:03)
[2022-10-19] MEDS: Bisacodyl 5 MG Tablet PO (08:03)
[2022-10-19] MEDS: Carvedilol 6.25 MG Tablet PO ×2 (08:03→17:28)
[2022-10-19] MEDS: Aspirin E.C. 81 MG Tablet PO (08:03)
[2022-10-19] MEDS: hydroCHLOROthiazide 25 MG Tablet PO (08:04)
[2022-10-19] MEDS: Menthol/Lanolin/Calamine/Znox 113 GM Tube 1 APPLIC TOPICAL ×2 (10:20→21:09)
[2022-10-19 14:12] VITALS: BP 156/68; PULSE 76; RESP 14; TEMP 36.8; O2SAT 95
--- NOTE | 2022-10-19 14:50 | CASEMGMT ---
Addendum entered by Radha Baeza 10/21/22 08:55: [facility] both can accept. [facility] is first choice. Updated both HHC agencies. Addendum entered by Radha Baeza 10/20/22 15:56: Pt provided HHC choices - [facility], [facility], [facility]. [facility] does not have all therapies needed. Referrals placed in [facility] to [facility] and [facility]. Original Note: Social Work IDT met with patient and two daughters for care plan meeting. Discussed patient's progress in PT/OT/SN. Pt is progressing well and therapy agreed to make pt adlib for bathroom usage. Educated to [employer] insurance with [employer]D 10/21 and to anticipate DC date 10/24. Pt and dtr's are in agreement of DC 10/24. SW offered HHC vs OP therapy. Pt prefers HHC. SW provided skilled HHC list with quality and resource data via [facility] to chose preferences. No DME needs. Dtr to transport. Dtr will also provide the daily enema to pt at home since C nurse will not be present daily. Plan: DC home alone with dtr's assistance 10/24, [facility] PT/OT/SN SOLEDAD Cole
--- NOTE | 2022-10-19 19:36 | DS.PCM_ITS ---
Providers Date of Admission: 10/10/22 Primary Care Physician: Dr. Dang Barker MD Reason For Visit: PROCTITIS Diagnosis Discharge Diagnosis (1) Debility: Status: Acute Code(s): R53.81 - Other malaise (2) Rectal pain: Status: Acute Code(s): K62.89 - Other specified diseases of anus and rectum (3) Hypokalemia: Status: Acute Code(s): E87.6 - Hypokalemia (4) Hypophosphatemia: Status: Acute Code(s): E83.39 - Other disorders of phosphorus metabolism (5) Hypomagnesemia: Status: Acute Code(s): E83.42 - Hypomagnesemia (6) Constipation: Status: Resolved Code(s): K59.00 - Constipation, unspecified (7) Hypertension: Status: Chronic Code(s): I10 - Essential (primary) hypertension (8) Depression: Status: Acute Code(s): F32.A - Depression, unspecified (9) Hypothyroidism: Status: Acute Code(s): E03.9 - Hypothyroidism, unspecified (10) Hyperlipidemia: Status: Acute Code(s): E78.5 - Hyperlipidemia, unspecified (11) Hemorrhoids: Status: Acute Code(s): K64.9 - Unspecified hemorrhoids Plan 77 year old female with below past medical history hospitalized for intractable rectal pain secondary to proctitis, complicated by hypokalemia, hypophosphatemia, hypomagnesemia, admitted to TCU with debility, here for rehabilitation, strengthening, prior to discharge home alone. * Debility - PT/OT. * Pain - Tylenol 1000mg q8. * Bowel - Dulcolax 5mg daily, senna/colace 2 tablets bid prn. * Adult immunization - Administer pneumonia vaccine, covid19 vaccine, flu vaccine as appropriate. * DVT prophylaxis - Hold, monitor. * Coronary artery disease - Coreg 6.25mg bid, Aspirin 81mg daily. * Hyperlipidemia - Atorvastatin 10mg qhs. * Proctitis - Cipro 250mg bid thru 10/20/2022, Flagyl 250mg bid thru 10/21/2022, Hydrocortisone enema 100mg pr bid, Lidocaine topical Q2H prn. 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 * Hypertension - Coreg 6.25mg bid, HCTZ 25mg daily. * Hypothyroidism - Levothyroxine 25mcg daily. * Vitamin D deficiency - D3 50mcg daily. Medications at Discharge Home Medications hydrochlorothiazide 25 mg tablet 25 mg PO DAILY blood pressure 11/26/18 aspirin 81 mg tablet,delayed release (Adult Aspirin Regimen) 81 mg PO DAILY heart health 02/19/19 cholecalciferol (vitamin D3) 50 mcg (2,000 unit) tablet 2,000 unit PO DAILY supplement 02/19/19 citalopram 20 mg tablet 20 mg PO DAILY depression 02/19/19 levothyroxine 25 mcg tablet 25 mcg PO DAILY thyroid 01/28/21 rosuvastatin 5 mg tablet 5 mg PO DAILY cholesterol 01/28/21 acetaminophen 500 mg tablet 1,000 mg PO Q8 pain 10/10/22 carvedilol 6.25 mg tablet 6.25 mg PO BID heart 10/10/22 bisacodyl 5 mg tablet,delayed release 5 mg PO DAILY@0800 30 days #30 tabs 10/19/22 hydrocortisone 100 mg/60 mL enema 100 mg (60 mL) OK 0600,1800 7 days #840 mL 10/19/22 lidocaine HCl 2 % mucosal jelly in applicator 1 applic topical Q2H PRN HEMORRHOIDS 30 days #500 mL 10/19/22 Hospital Course Operations None Procedures None Summary of Care Provided Minutes Spent on Discharge: 35 Hospital Course: 77 year old female with below past medical history hospitalized for intractable rectal pain secondary to proctitis, complicated by hypokalemia, hypophospha temia, hypomagnesemia, admitted to TCU with debility, here for rehabilitation, strengthening, prior to discharge home alone. 10/13/2022 Dr. Silva recommended 21 days of hydrocortisone enemas, then col onoscopy in 4-6 weeks. Discharge home alone with daughter's assistance 10/24/2022, Home Health Care PT /OT/SN. Physical Exam Const alert General Appearance: cooperative HEENT normocephalic Eyes PERRL and EOMs intact bilaterally Neck supple, no JVD and no carotid bruits Resp normal respiratory effort, normal air movement and clear to auscultation bilaterally Cardio regular rate and regular rhythm GI normal to inspection, nondistended, normoactive bowel sounds, non-tender and non-distended Extremity normal capillary refill General Extremity: Negative for edema Skin no rashes or lesions noted General Skin Exam: no breakdown Psych affect normal Appearance: appropriate Weight / BMI Weight Weight: 92.59 kg Body Mass Index (BMI) 35.0 ABG / Lab / Microbiology Data Result Diagrams: 10/18/22 05:17 10/18/22 05:17 Microbiology: Microbiology 10/18/22 10:50 Nasal Secretion SARS-CoV-2 Antigen (Rapid) - Final 10/14/22 05:20 Nasal Secretion SARS-CoV-2 Antigen (Rapid) - Final 10/12/22 06:25 Nasal Secretion SARS-CoV-2 Antigen (Rapid) - Final D/C Instructions Discharge Diet: No restrictions Discharge Activity: Return to Normal Activity, May Shower and Use Walker Weight Bearing Status: Weight bearing as tolerated Call your doctor if you observe: Fever of 101 or Higher, Inability to urinate, Inability to have a bowel movement, Shortness of breath, Dizziness, Fainting spells, Swelling in the ankles, Chest pain and Uncontrolled pain Additional Instructions: Discharge home alone with daughter's assistance 10/24/2022, Home Health Care PT/OT/SN. Please Follow Up With: Dang Barker MD When: 1 week. Meaningful Use Info Meaningful Use Diagnoses (Choose all that apply): None applicable Discharge Plan Admission Admit Date/Time: 10/10/22 17:15 Primary Reason for Your Visit: Debility. Attending Provider: Daniel Campos Chi Primary Care Provider: Dang Barker Instructions Additional Instructions / Restrictions: Discharge home alone with daughter's assistance 10/24/2022, Home Health Care PT/OT/SN. Discharge Orders/Prescriptions Prescriptions: New bisacodyl 5 mg Tablet,Delayed Release (Dr/Ec) 5 mg PO DAILY@0800 30 Days Qty: 30 0RF hydrocortisone 100 mg/60 mL Enema 100 mg OK 0600,1800 7 Days Qty: 840 0RF lidocaine HCl 2 % Jelly In Applicator 1 applic topical Q2H PRN (Reason: HEMORRHOIDS) 30 Days Qty: 500 0RF Protocol: *Topical Application Instructions APPLICATION INSTRUCTIONS: rectum Continued citalopram 20 mg tablet 20 mg PO DAILY cholecalciferol (vitamin D3) 2,000 unit tablet 2,000 unit PO DAILY aspirin [Adult Aspirin Regimen] 81 mg tablet,delayed release (DR/EC) 81 mg PO DAILY rosuvastatin 5 mg tablet 5 mg PO DAILY levothyroxine 25 mcg tablet 25 mcg PO DAILY hydrochlorothiazide 25 MG tablet 25 mg PO DAILY carvedilol 6.25 mg tablet 6.25 mg PO BID Rx Instructions: must administer with a meal/food acetaminophen 500 mg tablet 1,000 mg PO Q8 Discontinued lidocaine HCl 2 % Jelly In Applicator 1 applic topical Q2H PRN (Reason: HEMORRHOIDS) Qty: 0 0RF Protocol: *Topical Application Instructions APPLICATION INSTRUCTIONS: to rectal irritations Rx Instructions: to rectum sennosides-docusate sodium [Stool Softener-Stimulant Laxat] 8.6-50 mg Tablet 2 tab PO BID PRN PRN (Reason: Constipation) Qty: 0 0RF metronidazole 500 mg tablet 500 mg PO TID Rx Instructions: for 32 more doses (11.5 days) ciprofloxacin HCl 500 mg tablet 500 mg PO BID Rx Instructions: for 11.5 more days (21 more doses) hydrocortisone 100 mg/60 mL enema 100 mg OK BID bisacodyl 5 mg tablet,delayed release (DR/EC) 5 mg PO DAILY Ensure Compact Liquid 118 ml PO TIDCM Referrals / Follow Up: Dang Barker MD [Primary Care Provider] - Disposition Disposition (needs filled in before D/C Order can be placed): Home Health Ser vice
[2022-10-19 20:37] VITALS: PULSE 78; RESP 16; O2SAT 96
[2022-10-19] MEDS: MELATONIN 10 MG TABLET PO (21:09)
[2022-10-19] MEDS: Atorvastatin Calcium 10 MG Tablet PO (21:09)
[2022-10-20] MEDS: Cholecalciferol (VIT D3) 25 MCG TABLET (1,000 UNITS) 50 MCG PO (05:02)
[2022-10-20] MEDS: Acetaminophen 500 MG Tablet 1000 MG PO ×3 (05:02→20:27)
[2022-10-20] MEDS: Hydrocortisone 100 MG/60 ML ENEMA RC ×2 (05:02→19:14)
[2022-10-20] MEDS: Levothyroxine 25 MCG TABLET PO (05:03)
[2022-10-20] MEDS: Ciprofloxacin 250 MG Tablet PO ×2 (05:03→17:42)
[2022-10-20] MEDS: Nystatin Powder 15gm Bottle 1 APPLIC TOPICAL ×2 (05:03→17:42)
[2022-10-20] MEDS: Citalopram 20 MG Tablet PO (08:06)
[2022-10-20] MEDS: hydroCHLOROthiazide 25 MG Tablet PO (08:06)
[2022-10-20] MEDS: Aspirin E.C. 81 MG Tablet PO (08:06)
[2022-10-20] MEDS: Bisacodyl 5 MG Tablet PO (08:06)
[2022-10-20] MEDS: Carvedilol 6.25 MG Tablet PO ×2 (08:06→17:42)
--- NOTE | 2022-10-20 09:46 | MDS.RN ---
Information for the mds was obtained from review of the clinical record, interview of resident, staff, and direct observation of resident's care.
[2022-10-20 15:05] VITALS: BP 147/51; PULSE 76; RESP 18; TEMP 36.4; O2SAT 95
[2022-10-20] MEDS: Menthol/Lanolin/Calamine/Znox 113 GM Tube 1 APPLIC TOPICAL ×2 (15:05→20:26)
[2022-10-20] MEDS: Atorvastatin Calcium 10 MG Tablet PO (20:27)
[2022-10-20] MEDS: MELATONIN 10 MG TABLET PO (20:27)
[2022-10-21] MEDS: Levothyroxine 25 MCG TABLET PO (05:57)
[2022-10-21] MEDS: Cholecalciferol (VIT D3) 25 MCG TABLET (1,000 UNITS) 50 MCG PO (05:57)
[2022-10-21] MEDS: Acetaminophen 500 MG Tablet 1000 MG PO ×3 (05:58→20:42)
[2022-10-21] MEDS: Hydrocortisone 100 MG/60 ML ENEMA RC ×2 (05:58→18:13)
[2022-10-21] MEDS: Lidocaine Jelly 2% 20 ML Syringe (URO-JET) 1 APPLIC TOPICAL ×2 (05:58→18:13)
[2022-10-21] MEDS: Nystatin Powder 15gm Bottle 1 APPLIC TOPICAL ×2 (05:59→17:00)
[2022-10-21] MEDS: Bisacodyl 5 MG Tablet PO (08:58)
[2022-10-21] MEDS: Citalopram 20 MG Tablet PO (08:58)
[2022-10-21] MEDS: Menthol/Lanolin/Calamine/Znox 113 GM Tube 1 APPLIC TOPICAL ×2 (08:58→20:40)
[2022-10-21] MEDS: hydroCHLOROthiazide 25 MG Tablet PO (08:58)
[2022-10-21] MEDS: Aspirin E.C. 81 MG Tablet PO (08:58)
[2022-10-21] MEDS: Carvedilol 6.25 MG Tablet PO ×2 (08:58→16:57)
[2022-10-21 10:00] VITALS: PULSE 76; RESP 16; O2SAT 96
[2022-10-21 14:33] VITALS: BP 141/49; PULSE 78; RESP 18; TEMP 36.3; O2SAT 96
[2022-10-21] MEDS: Atorvastatin Calcium 10 MG Tablet PO (20:41)
[2022-10-21] MEDS: MELATONIN 10 MG TABLET PO (20:42)
[2022-10-22] MEDS: Hydrocortisone 100 MG/60 ML ENEMA RC ×2 (06:11→18:37)
[2022-10-22] MEDS: Acetaminophen 500 MG Tablet 1000 MG PO ×3 (06:12→21:15)
[2022-10-22] MEDS: Cholecalciferol (VIT D3) 25 MCG TABLET (1,000 UNITS) 50 MCG PO (06:12)
[2022-10-22] MEDS: Levothyroxine 25 MCG TABLET PO (06:12)
[2022-10-22] MEDS: Nystatin Powder 15gm Bottle 1 APPLIC TOPICAL ×2 (06:12→18:37)
[2022-10-22 08:00] VITALS: BP 141/38; PULSE 104
[2022-10-22] MEDS: Citalopram 20 MG Tablet PO (08:06)
[2022-10-22] MEDS: Aspirin E.C. 81 MG Tablet PO (08:07)
[2022-10-22] MEDS: Bisacodyl 5 MG Tablet PO (08:07)
[2022-10-22] MEDS: hydroCHLOROthiazide 25 MG Tablet PO (08:07)
[2022-10-22] MEDS: Menthol/Lanolin/Calamine/Znox 113 GM Tube 1 APPLIC TOPICAL (08:07)
[2022-10-22] MEDS: Carvedilol 6.25 MG Tablet PO ×2 (08:07→17:42)
[2022-10-22 09:29] VITALS: PULSE 77; O2SAT 96
[2022-10-22 14:46] VITALS: BP 120/40; PULSE 80; RESP 18; TEMP 36.6; O2SAT 98
[2022-10-22] MEDS: MELATONIN 10 MG TABLET PO (21:16)
[2022-10-22] MEDS: Atorvastatin Calcium 10 MG Tablet PO (21:16)
[2022-10-23] MEDS: Cholecalciferol (VIT D3) 25 MCG TABLET (1,000 UNITS) 50 MCG PO (05:03)
[2022-10-23] MEDS: Levothyroxine 25 MCG TABLET PO (05:03)
[2022-10-23] MEDS: Acetaminophen 500 MG Tablet 1000 MG PO ×3 (05:03→21:57)
[2022-10-23] MEDS: Hydrocortisone 100 MG/60 ML ENEMA RC ×2 (05:05→19:11)
[2022-10-23] MEDS: Nystatin Powder 15gm Bottle 1 APPLIC TOPICAL ×2 (05:07→19:11)
[2022-10-23 08:07] VITALS: BP 169/47; PULSE 77; O2SAT 93
[2022-10-23] MEDS: Citalopram 20 MG Tablet PO (08:10)
[2022-10-23] MEDS: hydroCHLOROthiazide 25 MG Tablet PO (08:11)
[2022-10-23] MEDS: Bisacodyl 5 MG Tablet PO (08:11)
[2022-10-23] MEDS: Aspirin E.C. 81 MG Tablet PO (08:11)
[2022-10-23] MEDS: Carvedilol 6.25 MG Tablet PO ×2 (08:11→17:18)
--- NOTE | 2022-10-23 09:00 | NURSING ---
clarified cortenema order at DC, family stating Dr Ricardo wanted it daily. Dr Campos stated, yes have family do it daily at home on discharge.
[2022-10-23 09:49] VITALS: PULSE 82; O2SAT 98
[2022-10-23 16:00] VITALS: BP 150/67; PULSE 82; RESP 16; TEMP 36.4
[2022-10-23] MEDS: Atorvastatin Calcium 10 MG Tablet PO (21:57)
[2022-10-23] MEDS: MELATONIN 10 MG TABLET PO (21:57)
[2022-10-24] MEDS: Cholecalciferol (VIT D3) 25 MCG TABLET (1,000 UNITS) 50 MCG PO (05:36)
[2022-10-24] MEDS: Acetaminophen 500 MG Tablet 1000 MG PO (05:36)
[2022-10-24] MEDS: Levothyroxine 25 MCG TABLET PO (05:36)
[2022-10-24] MEDS: Nystatin Powder 15gm Bottle 1 APPLIC TOPICAL (05:37)
[2022-10-24] MEDS: Hydrocortisone 100 MG/60 ML ENEMA RC (05:37)
[2022-10-24] MEDS: Carvedilol 6.25 MG Tablet PO (08:02)
[2022-10-24] MEDS: Citalopram 20 MG Tablet PO (08:02)
[2022-10-24] MEDS: hydroCHLOROthiazide 25 MG Tablet PO (08:02)
[2022-10-24] MEDS: Aspirin E.C. 81 MG Tablet PO (08:02)
[2022-10-24] MEDS: Bisacodyl 5 MG Tablet PO (08:02)
[2022-10-24 12:06] VITALS: BP 151/44; PULSE 78; RESP 16; TEMP 36.7; O2SAT 94
== END 2022-10-24 12:32 | disposition home health service (06) | DRG 395 ==
PROVIDERS: Admitting Provider Family Medicine Geriatric Medicine; PCP Internal Medicine; Referring Provider Family Medicine Geriatric Medicine; Visit Provider Family Medicine Geriatric Medicine
DX: K62.89 Other specified diseases of anus and rectum (principal); E03.9 Hypothyroidism, unspecified; E55.9 Vitamin D deficiency, unspecified; I10 Essential (primary) hypertension; E78.5 Hyperlipidemia, unspecified; I25.10 Atherosclerotic heart disease of native coronary artery without angina pectoris; K59.00 Constipation, unspecified; K64.9 Unspecified hemorrhoids; E87.6 Hypokalemia; Z79.82 Long term (current) use of aspirin; Z79.899 Other long term (current) drug therapy; Z79.890 Hormone replacement therapy; F32.A Depression, unspecified
CPT/HCPCS: 36415; 80048; 82962; 85014; 85018; 85025; 87426; 87811; 97110; 97116; 97162; 97166; 97530; 97535; 97802; A4216